=== PATIENT | male | born 1940 | race African-American/Black ===

== ENCOUNTER 2017-02-07 11:26 | Emergency (ER) | payer MEDICARE ==
[~2017-02-07] VITALS: Ht 177.8 cm; Wt 63.5 kg
[~2017-02-07 11:26] MED LIST: ACET-704 PO; ASPI81TA9 PO; CYCL10TA2 PO; LIDO700A4 TP; LOSA25TA4 PO; LOSA50TA2 PO; METH4TAB2 PO; PANT40TA5 PO
[2017-02-07 11:45] VITALS: BP 155/87
--- NOTE | 2017-02-07 13:55 | RAD ---
Left shoulder, 3 views, 02/07/2017: History: Fall, pain No fracture or dislocation is identified. There is mild degenerative change. IMPRESSION: No acute bony abnormality is detected.
--- NOTE | 2017-02-07 13:57 | RAD ---
Left foot, 3 views, 02/07/2017: History: Fall, foot pain The bony structures are demineralized. There are mild scattered degenerative changes. No acute fracture or dislocation is identified. Arterial calcifications are present. IMPRESSION: No acute bony abnormality is detected.
--- NOTE | 2017-02-07 14:12 | PHYS DOC ---
Past Medical History Past Medical History: Hypertension Past Surgical History: No Surgical History Alcohol Use: None Drug Use: None Adult General Chief Complaint Chief Complaint: SHOULDER INJURY HPI HPI Patient is a 76 year old male who fell in his garden yesterday and injured his left foot and left shoulder. He was wearing a baseball And thinks he bumped his head on the side of his house but does not think he had any significant head injury, no abrasion to his head, no loss of consciousness. He has been ambulatory since this happened but he has noted some shoulder soreness with decreased range of motion of his shoulder and also his left foot is sore. 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 Review of Systems Review of Systems Constitutional: Denies fever or chills [] HENT: Denies nasal congestion or sore throat [] Respiratory: Denies cough or shortness of breath [] : Denies dysuria or hematuria [] Musculoskeletal: As in history of present illness Integument: Denies rash or skin lesions [] Neurologic: Denies headache, focal weakness or sensory changes [] Allergies Allergies Allergies Coded Allergies Type Severity Reaction Last Updated Verified No Known Drug Allergies 08/21/15 No Physical Exam Physical Exam Constitutional: Well developed, well nourished, no acute distress, non-toxic appearance. [] HENT: Normocephalic, atraumatic, bilateral external ears normal, nose normal. [ ] Eyes: conjunctiva normal, no discharge. [] Neck: Normal range of motion, no stridor. [] Skin: Warm, dry, no erythema, no rash. [] Extremities: Left shoulder no bony tenderness, no joint space tenderness. Some pain with abduction of the shoulder although he is mostly able to do full range of motion. Not much discomfort with rotation of the shoulder. Left foot has tenderness of the great toe, no swelling, no deformity. Neurologic: Alert and oriented X 3, normal motor function, normal sensory function, no focal deficits noted. [] Current Patient Data Vital Signs Vital Signs Date Time Temp Pulse Resp B/P Pulse Ox O2 Delivery O2 Flow Rate FiO2 02/07/17 11:45 98.1 96 20 155/87 100 Room Air 98.1 EKG EKG [] Radiology/Procedures Radiology/Procedures X-rays of the left shoulder and the left foot were obtained and read by me, no acute fracture, no dislocation. [] Course & Med Decision Making Course & Med Decision Making Pertinent Labs and Imaging studies reviewed. (See chart for details) 76-year-old male fell yesterday and complains of left shoulder pain and left foot pain. X-rays are negative for fracture. He may have a rotator cuff injury, I discussed this with him, and urged him to follow up within the next 5-7 days with orthopedics if his shoulder does not seem to be getting back to normal, encouraged him to not delay with a follow-up if his shoulder continues to bother him. Ice and ibuprofen for both. Note to be off work until Sunday. [] Dragon Disclaimer Dragon Disclaimer This electronic medical record was generated, in whole or in part, using a voice recognition dictation system. Departure Departure Impression: Primary Impression: Contusion of left shoulder Additional Impression: Contusion of left foot Disposition: HOME, SELF-CARE Condition: STABLE Referrals: RACHAEL COFFEY MD (PCP) JUAN DAVID TAVERA MD Patient Instructions: Shoulder Pain, [id number] Additional Instructions: As we discussed, your x-rays are normal. Your shoulder might just be bruised, but if it is not feeling much better in the next 3-5 days, you need to see an orthopedic doctor for recheck of your shoulder. I gave you a referral, or you may call your doctor for a referral, to orthopedics. Ice 15-20 minutes out of every 1-2 hours on your shoulder and your foot. Purchase ibuprofen 200 mg (same as Motrin or Advil) [id number] and take one or 2 every 6 hours as needed for pain. Problem Qualifiers HAN MEHTA MD Feb 07, 2017 14:12
== END 2017-02-07 14:36 | disposition home or self-care (01) ==
LOC: ER 11:26
DX: S90.32XA Contusion of left foot, initial encounter (principal); S40.012A Contusion of left shoulder, initial encounter; I10 Essential (primary) hypertension; X58.XXXA Exposure to other specified factors, initial encounter; Y93.64 Activity, baseball; Y99.8 Other external cause status; Y92.89 Other specified places as the place of occurrence of the external cause
CPT/HCPCS: 73030; 73630; 99284

== ENCOUNTER 2017-03-15 00:11 | Emergency (ER) | payer BC ==
[~2017-03-15] VITALS: Ht 177.8 cm; Wt 63.5 kg
[2017-03-15] MEDS ORDERED: IV NORMAL SALINE 1000ML BAG 1,000 ML IV SCH (01:00)
[2017-03-15 01:07] LABS: BASO # 0.1 x10^3/uL (0.0-0.2); BASO % 1 % (0-3); EOS % 1 % (0-3); HEMATOCRIT 43.5 % (39.0-53.0); HEMOGLOBIN 13.9 g/dL (13.0-17.5); LYMPH # 7.3 x10^3/uL (1.0-4.8); LYMPH % 73 % (24-48); MEAN CORPUSCULAR HEMOGLOBIN 27 pg (25-35); MEAN CORPUSCULAR HGB CONC 32 g/dL (31-37); MEAN CORPUSCULAR VOLUME 85 fL (79-100); MONO % 5 % (0-9); NEUT % 20 % (31-73); PLATELET COUNT 168 x10^3/uL (140-400); RED CELL DISTRIBUTION WIDTH 14.2 % (11.5-14.5)
[2017-03-15 01:20] LABS: CALCIUM 9.4 mg/dL (8.5-10.1); CREATININE 0.8 mg/dL (0.7-1.3); GFR 114.3; POTASSIUM 3.7 mmol/L (3.5-5.1)
[2017-03-15 01:27] LABS: ALBUMIN 3.7 g/dL (3.4-5.0); ALBUMIN/GLOBULIN RATIO 0.9 (1.0-1.7); MAGNESIUM 2.2 mg/dL (1.8-2.4); TOTAL BILIRUBIN 0.6 mg/dL (0.2-1.0); TOTAL PROTEIN 7.8 g/dL (6.4-8.2)
[2017-03-15 01:39] LABS: BILIRUBIN,URINE NEGATIVE (NEG); GLUCOSE,URINE NEGATIVE (NEG); NITRITE,URINE NEGATIVE (NEG); PH,URINE 6.5; PROTEIN,URINE NEGATIVE (NEG-TRACE); UROBILINOGEN,URINE 0.2 mg/dL (0.2 mg/dL)
[2017-03-15 01:45] LABS: BACTERIA,URINE 0 /HPF (0-FEW); RBC,URINE 0 /HPF (0-2); SQUAMOUS EPITHELIAL CELL,UR OCC /LPF; WBC,URINE OCC /HPF (0-4)
--- NOTE | 2017-03-15 02:08 | RAD ---
INDICATION: Dizziness COMPARISON: December 2015 TECHNIQUE: Axial CT images obtained through the head. One or more of the following individualized dose reduction techniques were utilized for this examination: 1. Automated exposure control; 2. Adjustment of the mA and/or kV according to patient size; 3. Use of iterative reconstruction technique. FINDINGS: No midline shift. Ventricles and sulci are prominent. Basilar cistern patent. No gross hemorrhage or intracranial mass. No displaced skull fracture. Regions of low attenuation of the white matter. IMPRESSION: No acute intracranial hemorrhage. Regions of low attenuation of the white matter. Nonspecific but frequently secondary to chronic small vessel ischemic disease. Electronically signed by: Aristeo Dumont (March 15, 2017 02:06:12)
[2017-03-15] MEDS ORDERED: hydrALAZINE 20 MG/ML VIAL. IVP ONE (02:15)
[2017-03-15] MEDS ORDERED: AMLO5TAB2 PO (02:20)
--- NOTE | 2017-03-15 02:20 | PHYS DOC ---
Past Medical History Past Medical History: Hypertension Past Surgical History: No Surgical History Alcohol Use: None Drug Use: None Adult General Chief Complaint Chief Complaint: DIZZY/LIGHT HEADED HPI HPI Patient is a 76 year old male who presents with complaint of intermittent lightheadedness. Patient states that he has had similar symptoms for several weeks, however he started having more frequent symptoms over the past 2 days. Patient states that his symptoms worsen when he tries to lay down at nighttime. Patient states that they improve when he sits up. Patient states that while upright he does not get dizzy or lightheaded. Patient states that he drove himself here to the emergency department for evaluation. Patient states he follows a Dr. Otero but states that he does not take any medications and is not treated for any medical conditions at this time. Patient denies any pain, vision loss, unilateral weakness, or headache at this time. Patient states that his symptoms have been making it difficult for him to sleep which is why he came to the emergency department. Review of Systems Review of Systems Constitutional: Denies fever or chills [] Eyes: Denies change in visual acuity, redness, or eye pain [] HENT: Denies nasal congestion or sore throat [] Respiratory: Denies cough or shortness of breath [] Cardiovascular: Denies chest pain or edema [] GI: Denies abdominal pain, nausea, vomiting, bloody stools or diarrhea [] : Denies dysuria or hematuria [] Musculoskeletal: Denies back pain or joint pain [] Integument: Denies rash or skin lesions [] Neurologic: Dizziness, denies headache, focal weakness or sensory changes [] Current Medications Current Medications Current Medications Medications (Trade) Dose Ordered Sig/Kam Start Time Stop Time Status Last Admin Dose Admin Amlodipine Besylate (Norvasc) 5 mg 1X ONCE 03/15/17 02:45 03/15/17 02:46 03/15/17 02:36 5 MG Hydralazine HCl (Apresoline) 10 mg 1X ONCE 03/15/17 02:15 03/15/17 02:34 DC Sodium Chloride 1,000 ml @ 1,000 mls/hr Q1H 03/15/17 01:00 03/15/17 01:59 DC 03/15/17 01:07 1,000 MLS/HR Allergies Allergies Allergies Coded Allergies Type Severity Reaction Last Updated Verified No Known Drug Allergies 08/21/15 No Physical Exam Physical Exam Constitutional: Well developed, well nourished, no acute distress, non-toxic appearance. [] HENT: Normocephalic, atraumatic, bilateral external ears normal, oropharynx moist, no oral exudates, nose normal. [] Eyes: PERRLA, EOMI, conjunctiva normal, no discharge. [] Neck: Normal range of motion, no tenderness, supple, no stridor. [] Cardiovascular:Heart rate regular rhythm, no murmur [] Lungs & Thorax: Bilateral breath sounds clear to auscultation [] Abdomen: Bowel sounds normal, soft, no tenderness, no masses, no pulsatile masses. [] Skin: Warm, dry, no erythema, no rash. [] Back: No tenderness, no CVA tenderness. [] Extremities: No tenderness, no cyanosis, no clubbing, ROM intact, no edema. [] Neurologic: Alert and oriented X 3, normal motor function, normal sensory function, no focal deficits noted. [] Psychologic: Affect normal, judgement normal, mood normal. [] Current Patient Data Vital Signs Vital Signs Date Time Temp Pulse Resp B/P (MAP) Pulse Ox O2 Delivery O2 Flow Rate FiO2 03/15/17 02:36 74 167/86 03/15/17 00:27 97.7 16 99 Room Air 97.7 Lab Values Laboratory Tests Test 03/15/17 00:30 03/15/17 01:30 White Blood Count 10.0 x10^3/uL (4.0-11.0) Red Blood Count 5.10 x10^6/uL (4.30-5.70) Hemoglobin 13.9 g/dL (13.0-17.5) Hematocrit 43.5 % (39.0-53.0) Mean Corpuscular Volume 85 fL (79-100) Mean Corpuscular Hemoglobin 27 pg (25-35) Mean Corpuscular Hemoglobin Concent 32 g/dL (31-37) Red Cell Distribution Width 14.2 % (11.5-14.5) Platelet Count 168 x10^3/uL (140-400) Neutrophils (%) (Auto) 20 % (31-73) L Lymphocytes (%) (Auto) 73 % (24-48) H Monocytes (%) (Auto) 5 % (0-9) Eosinophils (%) (Auto) 1 % (0-3) Basophils (%) (Auto) 1 % (0-3) Neutrophils # (Auto) 2.0 x10^3uL (1.8-7.7) Lymphocytes # (Auto) 7.3 x10^3/uL (1.0-4.8) H Monocytes # (Auto) 0.5 x10^3/uL (0.0-1.1) Eosinophils # (Auto) 0.1 x10^3/uL (0.0-0.7) Basophils # (Auto) 0.1 x10^3/uL (0.0-0.2) Platelet Estimate Pending Sodium Level 140 mmol/L (136-145) Potassium Level 3.7 mmol/L (3.5-5.1) Chloride Level 104 mmol/L (98-107) Carbon Dioxide Level 26 mmol/L (21-32) Anion Gap 10 (6-14) Blood Urea Nitrogen 10 mg/dL (8-26) Creatinine 0.8 mg/dL (0.7-1.3) Estimated GFR (Cockcroft-Gault) 114.3 BUN/Creatinine Ratio 13 (6-20) Glucose Level 97 mg/dL (70-99) Calcium Level 9.4 mg/dL (8.5-10.1) Magnesium Level 2.2 mg/dL (1.8-2.4) Total Bilirubin 0.6 mg/dL (0.2-1.0) Aspartate Amino Transferase (AST) 19 U/L (15-37) Alanine Aminotransferase (ALT) 18 U/L (16-63) Alkaline Phosphatase 68 U/L (46-116) Total Protein 7.8 g/dL (6.4-8.2) Albumin 3.7 g/dL (3.4-5.0) Albumin/Globulin Ratio 0.9 (1.0-1.7) L Urine Collection Type Unknown Urine Color Yellow Urine Clarity Cloudy Urine pH 6.5 Urine Specific [place] 1.010 Urine Protein Negative mg/dL (NEG-TRACE) Urine Glucose (UA) Negative mg/dL (NEG) Urine Ketones (Stick) Negative mg/dL (NEG) Urine Blood Negative (NEG) Urine Nitrite Negative (NEG) Urine Bilirubin Negative (NEG) Urine Urobilinogen Dipstick 0.2 mg/dL (0.2 mg/dL) Urine Leukocyte Esterase Negative (NEG) Urine RBC 0 /HPF (0-2) Urine WBC Occ /HPF (0-4) Urine Squamous Epithelial Cells Occ /LPF Urine Bacteria 0 /HPF (0-FEW) Urine Mucus Slight /LPF Laboratory Tests 03/15/17 00:30 Laboratory Tests 03/15/17 00:30 EKG EKG Interpreted by me: Heart rate 75, sinus rhythm, normal intervals, normal axis, no acute ST/T-wave abnormalities present [] Radiology/Procedures Radiology/Procedures [facility] [address] [place] [address] IMAGING REPORT Signed PATIENT: RAJAN OREILLY ACCOUNT: [id number] : 1940 LOCATION: ER AGE: 76 SEX: M EXAM STATUS: REG ER ORD. PHYSICIAN: RUFUS FONTAINE MD REASON: dizziness PROCEDURE: CT HEAD WO CONTRAST INDICATION: Dizziness COMPARISON: December 2015 TECHNIQUE: Axial CT images obtained through the head. One or more of the following individualized dose reduction techniques were utilized for this examination: 1. Automated exposure control; 2. Adjustment of the mA and/or kV according to patient size; 3. Use of iterative reconstruction technique. FINDINGS: No midline shift. Ventricles and sulci are prominent. Basilar cistern patent. No gross hemorrhage or intracranial mass. No displaced skull fracture. Regions of low attenuation of the white matter. IMPRESSION: No acute intracranial hemorrhage. Regions of low attenuation of the white matter. Nonspecific but frequently secondary to chronic small vessel ischemic disease. Electronically signed by: Sherwin Mulligan (March 15, 2017 02:06:12) DICTATED and SIGNED BY: SHERWIN MULLIGAN MD DATE: 03/15/17 0206 CC: JADE OTERO; RUFUS FONTAINE MD ~ [] Course & Med Decision Making Course & Med Decision Making Pertinent Labs and Imaging studies reviewed. (See chart for details) Patient noted to have an elevated blood pressure above 185 systolic in the emergency department. Patient's lab work and imaging are otherwise unremarkable. The patient's symptoms are likely due to uncontrolled hypertension. The patient however appears well and is appropriate for outpatient treatment. The patient was started on amlodipine 5 mg. Patient will continue on this medication daily with recommended follow-up in 2-3 days with the patient's primary physician. I advised return to the emergency department for any worsening symptoms. Patient voiced understanding and in agreement with treatment plan. Dragon Disclaimer Dragon Disclaimer This electronic medical record was generated, in whole or in part, using a voice recognition dictation system. Departure Departure Impression: Primary Impression: Hypertension Disposition: HOME, SELF-CARE Condition: IMPROVED Referrals: JADE OTERO (PCP) Patient Instructions: Hypertension Additional Instructions: Follow-up with her primary doctor in 2-3 days. Return to the emergency department for any worsening symptoms. Scripts Amlodipine Besylate (AMLODIPINE BESYLATE) 5 Mg Tablet 5 MG PO DAILY, #30 TAB Prov: RUFUS FONTAINE MD 03/15/17 Problem Qualifiers Primary Impression: Hypertension Hypertension type: essential hypertension Qualified Codes: I10 - Essential ( primary) hypertension RUFUS FONTAINE MD March 15, 2017 02:20
[2017-03-15] MEDS ORDERED: amLODIPine BESYLATE 5 MG TABLET ONE (02:31)
[2017-03-15 02:36] VITALS: BP 167/86
[2017-03-15] MEDS ORDERED: amLODIPine BESYLATE 5 MG TABLET PO ONE (02:45)
[2017-03-15 03:59] LABS: % EOS 4 % (0-5)
[2017-03-15 04:00] LABS: PLT ESTIMATE ADEQUATE (ADEQUATE)
--- NOTE | 2017-03-15 06:13 | EKG ---
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
== END 2017-03-15 02:49 | disposition home or self-care (01) ==
LOC: ER 00:11
DX: I10 Essential (primary) hypertension (principal)
CPT/HCPCS: 36415; 70450; 80053; 81001; 83735; 85007; 85027; 93005; 96360; 99285; J7030

== ENCOUNTER 2017-03-17 07:41 | Emergency (ER) | payer BC ==
[~2017-03-17 07:41] MED LIST changes: +AMLO5TAB2 PO
[2017-03-17] MEDS ORDERED: IV NORMAL SALINE 1000ML BAG 1,000 ML IV ONE (08:15)
--- NOTE | 2017-03-17 08:27 | PHYS DOC ---
Past Medical History Past Medical History: Hypertension Past Surgical History: No Surgical History Alcohol Use: None Drug Use: None Adult General Chief Complaint Chief Complaint: DIZZY/LIGHT HEADED [facility] HPI Patient is a 76 year old male presenting to the emergency department for evaluation of dizziness that has been an ongoing issue. Patient was seen 2 days ago for the same and thought that it was more orthostasis was discharged and saw his primary care provider Dr. Otero and was started on Norvasc for his hypertension. He says that he took his first dose yesterday. 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 He says that he just felt weak all over. Patient is very difficult to get history from as he does not answer questions directly and he talks about other things. I asked him to describe the dizziness if it is room spinning or lightheaded or altered gait and he started talking about ringing in his ears and has been going on for 3 years. Patient is in no obvious distress with normal vital signs with mild hypertension noted. Review of Systems Review of Systems Constitutional: Denies fever or chills [] Eyes: Denies change in visual acuity, redness, or eye pain [] HENT: Denies nasal congestion or sore throat [] Respiratory: Denies cough or shortness of breath [] Cardiovascular: No additional information not addressed in HPI [] GI: Denies abdominal pain, nausea, vomiting, bloody stools or diarrhea [] : Denies dysuria or hematuria [] Musculoskeletal: Denies back pain or joint pain [] Integument: Denies rash or skin lesions [] Neurologic: Denies headache, focal weakness. + dizziness sensory changes [] Current Medications Current Medications Current Medications Medications (Trade) Dose Ordered Sig/Kam Start Time Stop Time Status Last Admin Dose Admin Sodium Chloride 1,000 ml @ 1,000 mls/hr 1X ONCE 03/17/17 08:15 03/17/17 09:14 DC 03/17/17 08:42 1,000 MLS/HR Allergies Allergies Allergies Coded Allergies Type Severity Reaction Last Updated Verified No Known Drug Allergies 08/21/15 No Physical Exam Physical Exam Constitutional: Well developed, well nourished, no acute distress, non-toxic appearance. [] HENT: Normocephalic, atraumatic, bilateral external ears normal, oropharynx moist, no oral exudates, nose normal. [] Eyes: PERRLA, EOMI, conjunctiva normal, no discharge. [] Neck: Normal range of motion, no tenderness, supple, no stridor. [] Cardiovascular:Heart rate regular rhythm, no murmur [] Lungs & Thorax: Bilateral breath sounds clear to auscultation [] Abdomen: Bowel sounds normal, soft, no tenderness, no masses, no pulsatile masses. [] Skin: Warm, dry, no erythema, no rash. [] Back: No tenderness, no CVA tenderness. [] Extremities: No tenderness, no cyanosis, no clubbing, ROM intact, no edema. [] Neurologic: Alert and oriented X 3, normal motor function, normal sensory function, no focal deficits noted. [] Current Patient Data Vital Signs Vital Signs Date Time Temp Pulse Resp B/P (MAP) Pulse Ox O2 Delivery O2 Flow Rate FiO2 03/17/17 08:30 80 16 152/89 (110) 98 Room Air 03/17/17 07:57 98.0 98.0 Lab Values Laboratory Tests Test 03/17/17 08:38 White Blood Count 6.3 x10^3/uL (4.0-11.0) Red Blood Count 5.29 x10^6/uL (4.30-5.70) Hemoglobin 14.4 g/dL (13.0-17.5) Hematocrit 44.0 % (39.0-53.0) Mean Corpuscular Volume 83 fL (79-100) Mean Corpuscular Hemoglobin 27 pg (25-35) Mean Corpuscular Hemoglobin Concent 33 g/dL (31-37) Red Cell Distribution Width 13.8 % (11.5-14.5) Platelet Count 166 x10^3/uL (140-400) Neutrophils (%) (Auto) 27 % (31-73) L Lymphocytes (%) (Auto) 62 % (24-48) H Monocytes (%) (Auto) 9 % (0-9) Eosinophils (%) (Auto) 1 % (0-3) Basophils (%) (Auto) 1 % (0-3) Neutrophils # (Auto) 1.7 x10^3uL (1.8-7.7) L Lymphocytes # (Auto) 3.9 x10^3/uL (1.0-4.8) Monocytes # (Auto) 0.6 x10^3/uL (0.0-1.1) Eosinophils # (Auto) 0.0 x10^3/uL (0.0-0.7) Basophils # (Auto) 0.0 x10^3/uL (0.0-0.2) Sodium Level 141 mmol/L (136-145) Potassium Level 3.7 mmol/L (3.5-5.1) Chloride Level 105 mmol/L (98-107) Carbon Dioxide Level 28 mmol/L (21-32) Anion Gap 8 (6-14) Blood Urea Nitrogen 12 mg/dL (8-26) Creatinine 0.8 mg/dL (0.7-1.3) Estimated GFR (Cockcroft-Gault) 114.3 BUN/Creatinine Ratio 15 (6-20) Glucose Level 99 mg/dL (70-99) Calcium Level 9.0 mg/dL (8.5-10.1) Magnesium Level 2.1 mg/dL (1.8-2.4) Total Bilirubin 0.9 mg/dL (0.2-1.0) Aspartate Amino Transferase (AST) 18 U/L (15-37) Alanine Aminotransferase (ALT) 14 U/L (16-63) L Alkaline Phosphatase 76 U/L (46-116) Creatine Kinase 140 U/L (39-308) Troponin I Quantitative 0.034 ng/mL (0.000-0.055) AV-Taw-S-Type Natriuretic Peptide 43 pg/mL (0-124) Total Protein 7.7 g/dL (6.4-8.2) Albumin 3.6 g/dL (3.4-5.0) Albumin/Globulin Ratio 0.9 (1.0-1.7) L Salicylates Level < 0.2 mg/dL (2.8-20.0) L Salicylate Last Dose Date Unknown Salicylate Last Dose Time Unknown Acetaminophen Level < 2.0 mcg/ml (10-30) L Acetaminophen Last Dose Date Unknown Acetaminophen Last Dose Time Unknown Ethyl Alcohol Level < 10 mg/dL (0-10) Laboratory Tests 03/17/17 08:38 Laboratory Tests 03/17/17 08:38 EKG EKG Sinus rhythm at 80 bpm with normal axis and J-point elevation in V3 and V4 slightly more prominent than prior done on 01/06/2016. Normal T waves. Radiology/Procedures Radiology/Procedures [] Course & Med Decision Making Course & Med Decision Making Patient had fairly upper hands of workup several days ago. We'll repeat the labs and EKG treat him with IV fluids and then reassess. Patient feels back to baseline after IV fluids and observation here. His labs and EKG do not show any acute changes. It is difficult to get a grasp on what is exactly causing the patient's symptoms. An anginal equivalent or other cardiac etiology is considered given he had diaphoresis and dizziness on exertion. I recommended admission for further observation given this is second visit for the same thing however patient refused stating that he feels much better and wants to go home. Patient verbalized understanding the limitations of the testing that I can do in the emergency department and that cardiac disease is still a possibility. 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 Patient aware and agreeable with plan for discharge and verbalized understanding of the need for short-term follow-up and strict ER return precautions discussed worsening pain fevers vomiting or general concerns. Dragon Disclaimer Dragon Disclaimer This electronic medical record was generated, in whole or in part, using a voice recognition dictation system. Departure Departure Impression: Primary Impression: Dizziness Disposition: 01 HOME, SELF-CARE Condition: GOOD Referrals: JADE OTERO (PCP) KEARA HERNANDEZ MD Patient Instructions: Dizziness Additional Instructions: DO NOT EXERT YOURSELF UNTIL CLEARED BY YOUR PCP. FOLLOW WITH YOUR PCP OR A INSURANCE SALES ASSOCIATE IN THE NEXT 72 HOURS. TAKE A FULL ASPIRIN DAILY. COME BACK TO THE ED WITH ANY NEW OR WORSENING PAIN, SOA, OR OTHER GENERAL CONCERNS. THANK YOU. ADAM ESTES DO March 17, 2017 08:27
[2017-03-17 08:46] LABS: BASO % 1 % (0-3); EOS % 1 % (0-3); HEMOGLOBIN 14.4 g/dL (13.0-17.5); LYMPH # 3.9 x10^3/uL (1.0-4.8); LYMPH % 62 % (24-48); MEAN CORPUSCULAR HEMOGLOBIN 27 pg (25-35); MEAN CORPUSCULAR HGB CONC 33 g/dL (31-37); MEAN CORPUSCULAR VOLUME 83 fL (79-100); MONO % 9 % (0-9); NEUT % 27 % (31-73); PLATELET COUNT 166 x10^3/uL (140-400); RED BLOOD COUNT 5.29 x10^6/uL (4.30-5.70); RED CELL DISTRIBUTION WIDTH 13.8 % (11.5-14.5); WHITE BLOOD COUNT 6.3 x10^3/uL (4.0-11.0)
[2017-03-17 08:59] LABS: CREATININE 0.8 mg/dL (0.7-1.3); GFR 114.3; POTASSIUM 3.7 mmol/L (3.5-5.1)
[2017-03-17 09:01] LABS: ETHANOL < 10 mg/dL (0-10)
[2017-03-17 09:11] LABS: ALBUMIN 3.6 g/dL (3.4-5.0); TOTAL PROTEIN 7.7 g/dL (6.4-8.2)
[2017-03-17 09:12] LABS: ALBUMIN/GLOBULIN RATIO 0.9 (1.0-1.7); MAGNESIUM 2.1 mg/dL (1.8-2.4); TOTAL BILIRUBIN 0.9 mg/dL (0.2-1.0)
[2017-03-17 09:48] VITALS: BP 166/81
--- NOTE | 2017-03-17 09:58 | EKG ---
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
[2017-03-17 10:24] LABS: BILIRUBIN,URINE NEGATIVE (NEG); GLUCOSE,URINE NEGATIVE (NEG); NITRITE,URINE NEGATIVE (NEG); PH,URINE 6.5; PROTEIN,URINE NEGATIVE (NEG-TRACE); UROBILINOGEN,URINE 0.2 mg/dL (0.2 mg/dL)
[2017-03-17 10:33] LABS: BARBITURATES NEG (NEG); BENZODIAZEPINES NEG (NEG); CANNABINOIDS NEG (NEG); COCAINE NEG (NEG); METHADONE NEG (NEG); OPIATES NEG (NEG); PHENCYCLIDINE NEG (NEG)
[2017-03-17 10:40] LABS: BACTERIA,URINE 0 /HPF (0-FEW); RBC,URINE 0 /HPF (0-2); WBC,URINE OCC /HPF (0-4)
== END 2017-03-17 10:12 | disposition home or self-care (01) ==
LOC: ER 09:00
DX: R42 Dizziness and giddiness (principal); I10 Essential (primary) hypertension
CPT/HCPCS: 36415; 80053; 80305; 80320; 81001; 82550; 83735; 83880; 84484; 85027; 93005; 96360; 99285; G6038; J7030; G0480; G0481; 80196

== ENCOUNTER 2019-07-26 14:09 | Emergency (ER) | payer BC, MEDICARE, OTHER ==
[~2019-07-26] VITALS: Ht 180.3 cm; Wt 68.0 kg
[~2019-07-26 14:09] MED LIST changes: +AMLO5TAB10 PO; -AMLO5TAB2 PO; +ASPI-612 PO; -ASPI81TA9 PO; +LOSA-73 PO; -LOSA25TA4 PO; +LOSA25TA54 PO; -LOSA50TA2 PO; -PANT40TA5 PO; +PANT40TA77 PO
[2019-07-26 15:00] VITALS: BP 179/87
[2019-07-26] MEDS ORDERED: PENI500T PO (15:43)
[2019-07-26] MEDS ORDERED: ONDA4TAB12 PO (15:43)
--- NOTE | 2019-07-26 15:43 | PHYS DOC ---
Past Medical History Past Medical History: Hypertension Past Surgical History: No Surgical History Alcohol Use: None Drug Use: None Adult General Chief Complaint Chief Complaint: DENTAL PROBLEM HPI HPI Patient is a 78 year old male who presents with going to the dentist on Sunday and they say that he had an infection in his gumline after getting x-rays done. Patient states it is the left upper gumline. Patient denies any pain but states he's not feeling well states he is out of that her taste in his mouth and he thinks he is feeling sick. Patient states it did not give him a antibiotic at the dizziness. Patient states he had a doctor's appointment on Sunday with his primary care doctor and they did not give him a prescription for an antibiotic either. Review of Systems Review of Systems Constitutional: Denies fever or chills [] HENT: Denies nasal congestion or sore throat. Dental caries, infection to gumline. [] Respiratory: Denies cough or shortness of breath [] Cardiovascular: No additional information not addressed in HPI [] GI: Sour taste in mouth due causing low appetite. Denies abdominal pain, nausea, vomiting, bloody stools or diarrhea [] All other systems were reviewed and found to be within normal limits, except as documented in this note. Allergies Allergies Allergies Coded Allergies Type Severity Reaction Last Updated Verified No Known Drug Allergies 08/21/15 No Physical Exam Physical Exam Constitutional: Well developed, well nourished, no acute distress, non-toxic appearance. [] HENT: Normocephalic, atraumatic, bilateral external ears normal, oropharynx moist, no oral exudates, nose normal. [] Eyes: PERRLA, EOMI, conjunctiva normal, no discharge. [] Neck: Normal range of motion, no tenderness, supple, no stridor. [] Cardiovascular:Heart rate regular rhythm, no murmur [] Lungs & Thorax: Bilateral breath sounds clear to auscultation [] Abdomen: Bowel sounds normal, soft, no tenderness, no masses, no pulsatile masses. [] Skin: Warm, dry, no erythema, no rash. [] Back: No tenderness, no CVA tenderness. [] Extremities: No tenderness, no cyanosis, no clubbing, ROM intact, no edema. [] Neurologic: Alert and oriented X 3, normal motor function, normal sensory function, no focal deficits noted. [] Psychologic: Affect normal, judgement normal, mood normal. [] EKG EKG [] Radiology/Procedures Radiology/Procedures [] Course & Med Decision Making Course & Med Decision Making Patient is a 78 year old male who presents with going to the dentist on Sunday and they say that he had an infection in his gumline after getting x-rays done. Patient states it is the left upper gumline. Patient denies any pain but states he's not feeling well states he is out of that her taste in his mouth and he thinks he is feeling sick. Patient states it did not give him a antibiotic at the dizziness. Patient states he had a doctor's appointment on Sunday with his primary care doctor and they did not give him a prescription for an antibiotic either. Afebrile. Alert and oriented. Skin pink warm and dry. Patient is eating and drinking appropriately. Patient states he has a lack of appetite due to the taste in his mouth. Patient's left upper gumline is reddened and swollen but there is no tenderness or drainage from it. Patient states that his dentist told him that he needed an antibiotic and that his primary care would have given him one. Patient to follow-up with his dentist on Sunday next week. No facial swelling. Patient is denying any pain at this time. Dragon Disclaimer Dragon Disclaimer This electronic medical record was generated, in whole or in part, using a voice recognition dictation system. Departure Departure Impression: Primary Impression: Dental infection Disposition: HOME, SELF-CARE Condition: STABLE Referrals: JADE OTERO (PCP) Patient Instructions: Dental Abscess, Dental Caries Additional Instructions: Follow up with dentist as soon as possible. Take medication with food. Scripts Ondansetron (ONDANSETRON ODT) 4 Mg Tab.rapdis 1 TAB PO PRN Q6-8HRS, #10 TAB Prov: EDIS WANG SEAL EXTRUSION OPERATOR 07/26/19 Penicillin V Potassium (PENICILLIN V POTASSIUM) 500 Mg Tablet 1 TAB PO QID, #40 TAB Prov: EDIS WANG SEAL EXTRUSION OPERATOR 07/26/19 EDIS WNAG SEAL EXTRUSION OPERATOR Jul 26, 2019 15:43
== END 2019-07-26 15:55 | disposition home or self-care (01) ==
LOC: ER 14:09
DX: K04.7 Periapical abscess without sinus (principal); I10 Essential (primary) hypertension
CPT/HCPCS: 99283

== ENCOUNTER → 2019-08-20 | Outpatient (CLI) | payer MEDICARE ==
[2019-07-26 15:00] VITALS: BP 179/87
[~2019-08-20] MED LIST changes: +ONDA4TAB12 PO; +PENI500T PO
--- NOTE | 2019-08-20 13:35 | RAD ---
EXAM: Scrotal sonogram. HISTORY: Enlarged right testicle. TECHNIQUE: Garcia scale and color Doppler sonographic imaging of the scrotum was performed. COMPARISON: None. FINDINGS: The testes are normal in size and demonstrate normal symmetric blood flow. No focal testicular parenchymal lesion is seen. There are moderate the large right greater than left hydroceles. No varicocele seen. The epididymides are unremarkable. IMPRESSION: 1. Moderate to large right greater than left hydroceles. 2. Unremarkable testes. Electronically signed by: Nae Rivera MD (08/20/2019 1:32 PM) [place] [id number]
[2019-08-20 13:50] LABS: CREATININE 1.1 mg/dL (0.7-1.3); GFR 78.7
--- NOTE | 2019-08-20 14:54 | RAD ---
BRAIN W/O CONTRAST Date: 08/20/2019 1:00 PM Indication: Chronic dizziness Comparison: 01/07/2016. Technique: Multiplanar multisequence MRI of the brain was performed without intravenous contrast using the standard protocol. Examination was terminated prematurely at patient's request due to extreme dizziness. Axial T1, T2, FLAIR, DWI, and sagittal T1 imaging was obtained. Findings: No acute infarct. The ventricles are normal in size and configuration without hydrocephalus. Mild scattered FLAIR hyperintensities in the subcortical and periventricular deep white matter, a nonspecific finding, most commonly seen with chronic small vessel ischemic disease. The scalp and calvarium are normal. The pituitary and sella are normal. No Chiari malformation. Mild incompletely characterized degenerative spondylosis of the visualized upper cervical spine. The visualized orbits and globes are normal. Bilateral maxillary sinus mucous retention cyst. The mastoid air cells are clear. Abnormal left vertebral artery flow-void. IMPRESSION: 1. Incomplete examination at patient's request due to extreme dizziness. 2. No acute infarct. No hydrocephalus. No large space occupying mass. 3. Abnormal left vertebral artery flow void, likely due to slow flow or occlusion. This could be further characterized with CTA or MRA of the head and neck. 4. Mild chronic small vessel ischemic disease. Electronically signed by: Sid Rodriguez MD (08/20/2019 2:51 PM) [id number]
== END | disposition home or self-care (01) ==
LOC: MRI 13:26
PROVIDERS: ATTEND Family Medicine
DX: I67.82 Cerebral ischemia (principal); N43.3 Hydrocele, unspecified; J34.1 Cyst and mucocele of nose and nasal sinus; M47.812 Spondylosis without myelopathy or radiculopathy, cervical region
CPT/HCPCS: 36415; 70551; 76870; 82565; 84520

== ENCOUNTER 2020-05-16 13:47 | Emergency (ER) | payer MEDICARE ==
[~2020-05-16] VITALS: Ht 177.8 cm; Wt 70.4 kg
[2020-05-16 13:47] VITALS: BP 217/104
[2020-05-16] MEDS ORDERED: PENI500T PO (14:22)
--- NOTE | 2020-05-16 14:22 | PHYS DOC ---
Past Medical History Past Medical History: Hypertension Past Surgical History: No Surgical History Smoking Status: Never Smoker Alcohol Use: None Drug Use: None General Adult EDM: Chief Complaint: DENTAL PROBLEM HPI: HPI: Patient is a 79 year old male who presents with many dental caries. He states he had been having pain in the left upper teeth and went to the dentist on sunday. He staes they took x rays and told him he had a abscessed tooth but did not give him antibiotics. He states he has a bitter taste in his mouth and this has happened before in the past too when he had a dental infection. He states that the dentist told him if he wasn't feeling well that he should come to the ED to get antibiotics. Patient states the pain only occurs with chewing and he is just here for antibiotics. He denies fevers, dizziness, nausea, vomiting, abdominal pain, chest pain, soa, cough. Denies any pain at this time. Patient states he takes no medications daily and his only past medical history is dental caries and hypertension. Review of Systems: Review of Systems: Constitutional: Denies fever or chills. [] Eyes: Denies change in visual acuity. [] HENT: Denies nasal congestion or sore throat. Dental caries, abscessed left upper tooth with gumline swelling and redness. No discharge. Bitter taste in his mouth. [] Respiratory: Denies cough or shortness of breath. [] Cardiovascular: Denies chest pain or edema. [] GI: Denies abdominal pain, nausea, vomiting, bloody stools or diarrhea. [] : Denies dysuria. [] Musculoskeletal: Denies back pain or joint pain. [] Integument: Denies rash. [] Neurologic: Denies headache, focal weakness or sensory changes. [] Endocrine: Denies polyuria or polydipsia. [] Lymphatic: Denies swollen glands. [] Psychiatric: Denies depression or anxiety. [] Heart Score: Risk Factors: Risk Factors: DM, Current or recent (<one month) smoker, HTN, HLP, family history of CAD, obesity. Risk Scores: Score 0 - 3: 2.5% MACE over next 6 weeks - Discharge Home Score 4 - 6: 20.3% MACE over next 6 weeks - Admit for Clinical Observation Score 7 - 10: 72.7% MACE over next 6 weeks - Early Invasive Strategies Allergies: Allergies: Allergies Coded Allergies Type Severity Reaction Last Updated Verified No Known Drug Allergies 08/21/15 No Physical Exam: PE: Constitutional: Well developed, well nourished, no acute distress, non-toxic appearance. [] HENT: Normocephalic, atraumatic, bilateral external ears normal, oropharynx moist, no oral exudates, nose normal. Dental caries and left upper gumline swelling. No discharge or tenderness. [] Eyes: PERRLA, EOMI, conjunctiva normal, no discharge. [] Neck: Normal range of motion, no tenderness, supple, no stridor. [] Cardiovascular:Heart rate regular rhythm, no murmur [] Lungs & Thorax: Bilateral breath sounds clear to auscultation [] Abdomen: Bowel sounds normal, soft, no tenderness, no masses, no pulsatile masses. [] Skin: Warm, dry, no erythema, no rash. [] Back: No tenderness, no CVA tenderness. [] Extremities: No tenderness, no cyanosis, no clubbing, ROM intact, no edema. [] Neurologic: Alert and oriented X 3, normal motor function, normal sensory function, no focal deficits noted. [] Psychologic: Affect normal, judgement normal, mood normal. [] Current Patient Data: Vital Signs: Vital Signs Date Time Temp Pulse Resp B/P (MAP) Pulse Ox O2 Delivery O2 Flow Rate FiO2 05/16/20 13:47 98.9 102 16 217/104 (141) 98 Room Air 98.9 EKG: EKG: [] Radiology/Procedures: Radiology/Procedures: [] Course & Med Decision Making: Course & Med Decision Making Pertinent Labs and Imaging studies reviewed. (See chart for details) See HPI. Patient has many dental caries and missing teeth in his mouth. He has some gumline swelling to the left upper gums. I will place the patient on some penicillin and he can follow-up with his dentist as scheduled. [] Lisa Disclaimer: Lisa Disclaimer: This electronic medical record was generated, in whole or in part, using a voice recognition dictation system. Departure Departure Impression: Primary Impression: Dental infection Disposition: 01 HOME, SELF-CARE Condition: STABLE Referrals: JADE OTERO (PCP) Patient Instructions: Dental Abscess, Dental Caries Additional Instructions: Follow-up with your dentist as soon as possible. Take medication with food and as prescribed. Ibuprofen or Tylenol for your pain. Scripts Penicillin V Potassium (PENICILLIN V POTASSIUM) 500 Mg Tablet 1 TAB PO QID, #40 TAB Prov: EDIS WANG APRN 05/16/20 Justicifation of Admission Dx: Justifications for Admission: Justification of Admission Dx: N/A EDIS WANG APRN May 16, 2020 14:22
== END 2020-05-16 14:50 | disposition home or self-care (01) ==
LOC: ER 13:47
DX: K04.7 Periapical abscess without sinus (principal); I10 Essential (primary) hypertension
CPT/HCPCS: 99283

== ENCOUNTER → 2020-09-28 | Outpatient (CLI) | payer MEDICARE ==
[~2020-09-28] MED LIST changes: +AMLO-186 PO; -AMLO5TAB10 PO; -ASPI-612 PO; +ASPI-886 PO
[2020-09-28 14:38] LABS: BASO # 0.1 x10^3/uL (0.0-0.2); BASO % 0 % (0-3); EOS # 0.1 x10^3/uL (0.0-0.7); EOS % 0 % (0-3); HEMOGLOBIN 13.8 g/dL (13.0-17.5); LYMPH # 15.6 x10^3/uL (1.0-4.8); LYMPH % 81 % (24-48); MEAN CORPUSCULAR HEMOGLOBIN 27 pg (25-35); MEAN CORPUSCULAR HGB CONC 31 g/dL (31-37); MEAN CORPUSCULAR VOLUME 85 fL (79-100); MONO # 0.9 x10^3/uL (0.0-1.1); MONO % 5 % (0-9); NEUT # 2.6 x10^3/uL (1.8-7.7); NEUT % 13 % (31-73); PLATELET COUNT 186 x10^3/uL (140-400); RED BLOOD COUNT 5.17 x10^6/uL (4.30-5.70); RED CELL DISTRIBUTION WIDTH 14.7 % (11.5-14.5); WHITE BLOOD COUNT 19.2 x10^3/uL (4.0-11.0)
[2020-09-28 15:31] LABS: % BANDS 2 % (0-9); % LYMPHS 70 % (24-48); % MONOS 1 % (0-10); % SEGS 15 % (35-66)
[2020-09-28 16:28] LABS: PLT ESTIMATE ADEQUATE (ADEQUATE)
[2020-09-28 17:02] LABS: % ATYL 12 % (0-0)
[2020-09-28 23:20] LABS: SMUDGE CELLS PRESENT
== END ==
LOC: ONCLAB 14:23
PROVIDERS: ATTEND Internal Medicine Hematology & Oncology
DX: D72.829 Elevated white blood cell count, unspecified (principal)
CPT/HCPCS: 36415; 85007; 85025

== ENCOUNTER → 2020-10-04 | Outpatient (CLI) | payer MEDICARE | LOC: ONCLAB 10:34 | PROVIDERS: ATTEND Internal Medicine Hematology & Oncology | DX: C91.10 Chronic lymphocytic leukemia of B-cell type not having achieved remission (principal) | CPT/HCPCS: 88184; 88185; 88374 ==

== ENCOUNTER → 2021-02-08 | Outpatient (CLI) | payer MEDICARE ==
[~2021-02-08] MED LIST changes: +IOHEXOL 300 MG/ML 100ML VIAL. ONE
[2021-02-08 13:17] LABS: CREATININE 1.1 mg/dL (0.7-1.3); GFR 78.3
[2021-02-08] MEDS: IOHEXOL 300 MG/ML 100ML VIAL. IV ONE (13:30)
--- NOTE | 2021-02-08 17:34 | RAD ---
CTA HEAD AND NECK W/WO CONTRAST History:Reason: DIZZINESS / Spl. Instructions: IV OMNI 300 75 MLS / History: Technique: After bolus of intravenous contrast, volumetric CT data acquisition was acquired of the he ad and neck. Multiplanar reconstruction images to include MIP and 3-D reconstruction images are submi tted. Exposure: One or more of the following individualized dose reduction techniques were utilized for thi s examination: 1. Automated exposure control 2. Adjustment of the mA and/or kV according to patient size 3. Use of iterative reconstruction technique. Comparison: Head CT March 15, 2017 Any determination of stenosis is based on NASCET criteria. Head CTA: ICA: Severe atheromatous plaque within the carotid siphons. Moderate narrowing of the left supraclino id internal carotid artery. Severe narrowing of the right paraclinoid internal carotid artery (series 9 image 231). MCA: No stenosis, occlusion or aneurysm. AMADA: No stenosis, occlusion or aneurysm. BELL SPINNER: No stenosis, occlusion or aneurysm. No definite origin of the right posterior cerebral art faizan. Basilar artery: No stenosis, occlusion or aneurysm. Distal vertebral arteries: Irregularity left distal vertebral artery with multifocal narrowing. Paten t posterior inferior cerebellar artery. Moderate narrowing of the right distal vertebral artery due t o calcified plaque. Patent superior sagittal, straight, transverse and sigmoid venous sinuses. Bilateral maxillary sinus mucous retention cyst. Mastoid air cells are clear. CT angiogram neck: Aortic arch: Conventional arch anatomy. Common carotid arteries: No stenosis, occlusion or dissection. Internal carotid arteries: Mild atheromatous plaque within the carotid bifurcations. Additional ather omatous plaque within the internal carotid arteries with less than 50 percent narrowing. No occlusion . 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 Small irregular distal left vertebral artery with multifocal narrowing. Left apical fibronodular stranding with nodular appearance measures 0.8 x 0.8 cm. Soft tissues appear normal. Bones: No pathologic osseous lesions. Impression: 1. 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 Irregular left distal vertebral artery with multifocal narrowing. 2. Severe right and moderate left paraclinoid internal carotid artery narrowing due to atheromatous plaque. 3. Moderate right intracranial vertebral artery narrowing due to calcified plaque. 4. Left apical nodular opacity, may relate to pleural and parenchymal scarring. Recommend 6 month fo llow-up CT to ensure stability. Comparison with prior imaging studies would also be of benefit. Electronically signed by: Vidal Saleh DO (02/08/2021 5:31 PM) [id number]
== END ==
LOC: CT 13:00
PROVIDERS: ATTEND Nurse Practitioner Family
DX: I65.23 Occlusion and stenosis of bilateral carotid arteries (principal); I65.03 Occlusion and stenosis of bilateral vertebral arteries; R42 Dizziness and giddiness; J34.1 Cyst and mucocele of nose and nasal sinus
CPT/HCPCS: 36415; 70496; 70498; 82565; 84520; Q9967

== ENCOUNTER → 2021-03-01 | Outpatient (CLI) | payer MEDICARE ==
[~2021-03-01] MED LIST changes: -IOHEXOL 300 MG/ML 100ML VIAL. ONE
[2021-03-01 11:46] LABS: BASO % 0 % (0-3); EOS # 0.1 x10^3/uL (0.0-0.7); EOS % 1 % (0-3); HEMATOCRIT 44.6 % (39.0-53.0); HEMOGLOBIN 14.2 g/dL (13.0-17.5); LYMPH # 18.4 x10^3/uL (1.0-4.8); LYMPH % 87 % (24-48); MEAN CORPUSCULAR HEMOGLOBIN 27 pg (25-35); MEAN CORPUSCULAR HGB CONC 32 g/dL (31-37); MEAN CORPUSCULAR VOLUME 86 fL (79-100); MONO # 0.7 x10^3/uL (0.0-1.1); MONO % 3 % (0-9); NEUT % 9 % (31-73); PLATELET COUNT 190 x10^3/uL (140-400); RED CELL DISTRIBUTION WIDTH 14.7 % (11.5-14.5); WHITE BLOOD COUNT 21.3 x10^3/uL (4.0-11.0)
[2021-03-01 11:56] LABS: CALCIUM 8.9 mg/dL (8.5-10.1); GFR 87.4; POTASSIUM 4.1 mmol/L (3.5-5.1)
[2021-03-01 12:02] LABS: ALBUMIN 4.1 g/dL (3.4-5.0); ALBUMIN/GLOBULIN RATIO 1.2 (1.0-1.7); TOTAL BILIRUBIN 0.6 mg/dL (0.2-1.0); TOTAL PROTEIN 7.5 g/dL (6.4-8.2)
[2021-03-01 15:45] LABS: % BASOS 1 % (0-3); % LYMPHS 81 % (24-48); % MONOS 1 % (0-10); % SEGS 11 % (35-66)
[2021-03-01 15:49] LABS: PLT ESTIMATE ADEQUATE (ADEQUATE)
[2021-03-01 16:16] LABS: % ATYL 6 % (0-0)
== END ==
LOC: ONCLAB 11:23
PROVIDERS: ATTEND Internal Medicine Hematology & Oncology
DX: C91.10 Chronic lymphocytic leukemia of B-cell type not having achieved remission (principal)
CPT/HCPCS: 36415; 80053; 83615; 85007; 85025

== ENCOUNTER → 2021-03-02 | Outpatient (CLI) | payer MEDICARE ==
--- NOTE | 2021-03-03 08:17 | RAD ---
CT THORAX WO INDICATION: L UPPER LUNG MASS COMPARISON STUDY: CTA 02/08/2021. TECHNIQUE: Unenhanced axial images were obtained through the lungs and upper abdomen. Coronal and sa gittal multiplanar reconstructions were also obtained. PQRS compliance statement: One or more of the following individualized dose reduction techniques were utilized for this examinat ion: 1. Automated exposure control 2. Adjustment of the mA and/or kV according to patient size 3. Use of iterative reconstruction technique FINDINGS: Lungs and Airways: Unchanged mild left apical subpleural opacities. Normal central airways. Pleura: The pleural spaces are normal. Heart and Mediastinum: The visualized thyroid gland is normal in size and attenuation. No axillary or supraclavicular lymphadenopathy. No mediastinal, hilar or retrocrural lymphadenopathy. Normal cardia c size. Coronary artery atherosclerotic disease. The great vessels of the thorax are normal. Abdomen: Mild right hydronephrosis. Bilateral renal calculi. Bones and Soft Tissues: Degenerative changes of the spine. IMPRESSION: 1. 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 2. Mild right hydronephrosis. Bilateral renal calculi. Electronically signed by: Sid Rodriguez MD (03/03/2021 8:15 AM) [facility]Joe
== END ==
LOC: CT 11:25
PROVIDERS: ATTEND Internal Medicine
DX: N13.39 Other hydronephrosis (principal); N20.0 Calculus of kidney
CPT/HCPCS: 71250

== ENCOUNTER → 2021-07-25 | Outpatient (CLI) | payer MEDICARE ==
[2021-07-25 11:09] LABS: BASO % 0 % (0-3); EOS # 0.1 x10^3/uL (0.0-0.7); EOS % 0 % (0-3); HEMATOCRIT 40.8 % (39.0-53.0); LYMPH # 31.8 x10^3/uL (1.0-4.8); LYMPH % 93 % (24-48); MEAN CORPUSCULAR HEMOGLOBIN 28 pg (25-35); MEAN CORPUSCULAR HGB CONC 32 g/dL (31-37); MEAN CORPUSCULAR VOLUME 87 fL (79-100); MONO # 0.2 x10^3/uL (0.0-1.1); MONO % 1 % (0-9); NEUT # 1.9 x10^3/uL (1.8-7.7); NEUT % 5 % (31-73); PLATELET COUNT 201 x10^3/uL (140-400); RED BLOOD COUNT 4.68 x10^6/uL (4.30-5.70); RED CELL DISTRIBUTION WIDTH 15.1 % (11.5-14.5); WHITE BLOOD COUNT 34.1 x10^3/uL (4.0-11.0)
[2021-07-25 11:34] LABS: CALCIUM 9.3 mg/dL (8.5-10.1); GFR 87.4; POTASSIUM 3.8 mmol/L (3.5-5.1)
[2021-07-25 11:38] LABS: ALBUMIN 3.8 g/dL (3.4-5.0); TOTAL BILIRUBIN 0.6 mg/dL (0.2-1.0); TOTAL PROTEIN 7.7 g/dL (6.4-8.2)
[2021-07-25 15:10] LABS: % LYMPHS 81 % (24-48); % MONOS 1 % (0-10); % SEGS 14 % (35-66)
[2021-07-25 15:11] LABS: % ATYL 3 % (0-0); % EOS 1 % (0-5); PLT ESTIMATE ADEQUATE (ADEQUATE)
[2021-07-26 13:29] LABS: ALBUM 4.1 g/dL (2.9-4.4); ALPHA 1 0.2 g/dL (0.0-0.4); ALPHA 2 0.7 g/dL (0.4-1.0); GAMMA 1.2 g/dL (0.4-1.8); PROTEIN TOTAL 7.2 g/dL (6.0-8.5); SPEP AG RATIO 1.3 (0.7-1.7)
[2021-07-26 16:10] LABS: KAPPA FREE 34.5 mg/L (3.3-19.4); KAPPA LAMBDA RATIO 2.74 (0.26-1.65); LAMBDA FREE 12.6 mg/L (5.7-26.3)
== END ==
LOC: ONCLAB 09:02
PROVIDERS: ATTEND Internal Medicine Hematology & Oncology
DX: C91.10 Chronic lymphocytic leukemia of B-cell type not having achieved remission (principal)
CPT/HCPCS: 36415; 80053; 83520; 83615; 84165; 85007; 85025

== ENCOUNTER → 2021-08-23 | Outpatient (CLI) | payer MEDICARE ==
[~2021-08-23] MED LIST changes: +CYCL10TA19 PO; -CYCL10TA2 PO
--- NOTE | 2021-08-23 16:47 | RAD ---
EXAM: Renal sonogram. HISTORY: Renal stone. TECHNIQUE: Sonographic imaging of the kidneys and bladder was performed. COMPARISON: CT dated 03/02/2021. FINDINGS: The kidneys are normal in size. There is a 1.1 cm simple appearing cyst within the inferior right kidney. There is mild to moderate bilateral hydronephrosis. The urinary bladder is unremarkabl e. The ureteral jets are not assessed on this exam. IMPRESSION: 1. Mild to moderate bilateral hydronephrosis. 2. Small simple right renal cyst. Follow-up is not routinely performed for simple cysts. 3. Note is made that previously described nephrolithiasis is not well seen sonographically. Electronically signed by: Nae Rivera MD (08/23/2021 4:45 PM) [id number]
== END ==
LOC: US 15:40
PROVIDERS: ATTEND Internal Medicine
DX: N20.0 Calculus of kidney (principal); N28.1 Cyst of kidney, acquired; N13.30 Unspecified hydronephrosis
CPT/HCPCS: 76770

== ENCOUNTER → 2021-12-13 | Outpatient (CLI) | payer MEDICARE ==
[2021-12-13 11:44] LABS: BASO % 0 % (0-3); EOS # 0.1 x10^3/uL (0.0-0.7); EOS % 0 % (0-3); HEMATOCRIT 41.6 % (39.0-53.0); HEMOGLOBIN 12.9 g/dL (13.0-17.5); LYMPH # 36.4 x10^3/uL (1.0-4.8); LYMPH % 94 % (24-48); MEAN CORPUSCULAR HEMOGLOBIN 26 pg (25-35); MEAN CORPUSCULAR HGB CONC 31 g/dL (31-37); MEAN CORPUSCULAR VOLUME 85 fL (79-100); MONO # 0.2 x10^3/uL (0.0-1.1); MONO % 1 % (0-9); NEUT # 1.9 x10^3/uL (1.8-7.7); NEUT % 5 % (31-73); PLATELET COUNT 179 x10^3/uL (140-400); RED BLOOD COUNT 4.88 x10^6/uL (4.30-5.70); RED CELL DISTRIBUTION WIDTH 14.9 % (11.5-14.5); WHITE BLOOD COUNT 38.6 x10^3/uL (4.0-11.0)
[2021-12-13 12:03] LABS: CALCIUM 8.6 mg/dL (8.5-10.1); CREATININE 1.2 mg/dL (0.7-1.3); GFR 70.7; POTASSIUM 3.6 mmol/L (3.5-5.1)
[2021-12-13 12:10] LABS: ALBUMIN 3.4 g/dL (3.4-5.0); ALBUMIN/GLOBULIN RATIO 0.9 (1.0-1.7); TOTAL BILIRUBIN 0.9 mg/dL (0.2-1.0); TOTAL PROTEIN 7.1 g/dL (6.4-8.2)
[2021-12-13 13:01] LABS: % LYMPHS 97 % (24-48); % SEGS 3 % (35-66); PLT ESTIMATE ADEQUATE (ADEQUATE); SMUDGE CELLS PRESENT
== END ==
LOC: ONCLAB 11:06
PROVIDERS: ATTEND Internal Medicine Hematology & Oncology
DX: C91.10 Chronic lymphocytic leukemia of B-cell type not having achieved remission (principal)
CPT/HCPCS: 36415; 80053; 83615; 85007; 85025

== ENCOUNTER 2022-01-15 08:23 | Inpatient (IN) | payer MEDICARE ==
[~2022-01-15] VITALS: Ht 177.8 cm; Wt 67.7 kg
[2022-01-15] MEDS ORDERED: IV NORMAL SALINE 1000ML BAG 1,000 ML IV SCH (08:45)
--- NOTE | 2022-01-15 08:52 | PHYS DOC ---
Past Medical History Past Medical History: Hypertension Past Surgical History: No Surgical History Smoking Status: Never Smoker Alcohol Use: None Drug Use: None General Adult EDM: Chief Complaint: ABDOMINAL PAIN HPI: HPI: 81 yo AA M PMH HTN and HLD presents to the ed with concern for liver disease, yellow skin for the past 2 days. States he was seen by his pcp, Dr. Elizalde, this past week. Reports he does not drink any alcohol, denies any IV drug use. No known history of hepatitis. Review of Systems: Review of Systems: Constitutional: Denies fever or chills. [] Eyes: Denies change in visual acuity. [] HENT: Denies nasal congestion or sore throat. [] Respiratory: Denies cough or shortness of breath. [] Cardiovascular: Denies chest pain or edema. [] GI: Denies abdominal pain, nausea, vomiting, bloody stools or diarrhea. [] : Denies dysuria or hematuria Musculoskeletal: Denies back pain or joint pain. [] Integument: Denies rash or diaphoresis Neurologic: Denies headache, focal weakness or sensory changes. [] Endocrine: Denies polyuria or polydipsia. [] Lymphatic: Denies swollen glands. [] Psychiatric: Denies depression or anxiety. [] Heart Score: C/O Chest Pain: No Risk Factors: Risk Factors: DM, Current or recent (<one month) smoker, HTN, HLP, family history of CAD, obesity. Risk Scores: Score 0 - 3: 2.5% MACE over next 6 weeks - Discharge Home Score 4 - 6: 20.3% MACE over next 6 weeks - Admit for Clinical Observation Score 7 - 10: 72.7% MACE over next 6 weeks - Early Invasive Strategies Allergies: Allergies: Allergies Coded Allergies Type Severity Reaction Last Updated Verified No Known Drug Allergies 08/21/15 No Physical Exam: PE: Constitutional: Well developed, well nourished, no acute distress, non-toxic appearance., thin HENT: Normocephalic, atraumatic, Eyes: EOMI, bilateral scleral icterus present, no discharge. Neck: Normal range of motion, supple, Cardiovascular: S1/2 present, regular rhythm Lungs & Thorax: Speaking in full sentences, bilateral equal chest rise, no tachypnea or increased work of breathing Abdomen: soft, no tenderness, Skin: Warm, dry, no erythema, no rash, no jaundice Extremities: No tenderness, no cyanosis, no lower extremity edema, no asterixis Neurologic: Alert and oriented X 3, normal motor function, normal sensory function, no focal deficits noted. [] Psychologic: Affect normal, judgement normal, mood normal. [] EKG: EKG: Sinus rhythm 86 bpm, right axis deviation, QTC 453, T wave inversion 1 aVL, no ST ovation or ST depression, P wave inverted in lead I and upright in aVR, concerning for limb lead discordance Radiology/Procedures: Radiology/Procedures: IMAGING REPORT Signed PATIENT: RAJAN OREILLY ACCOUNT: [id number] : 1940 LOCATION: ER AGE: 81 SEX: M EXAM STATUS: REG ER ORD. PHYSICIAN: TREVON MCDONOUGH DO REASON: jaundice PROCEDURE: ABDOMEN LTD EXAMINATION: US ABDOMEN LIMITED INDICATION: 81 years, Male, jaundice. COMPARISON: CT chest dated 03/02/2021 TECHNIQUE: Grayscale, color Doppler and limited spectral Doppler images of the right upper quadrant were obtained. FINDINGS: LIVER: SIZE (LENGTH): 11.5 cm. ECHOGENICITY: Normal PARENCHYMA: Homogeneous echotexture. No discrete focal lesion. INTRAHEPATIC BILE DUCTS: Dilated. PORTAL VEIN: Patent with normal hepatopedal flow. GALLBLADDER: GALLBLADDER WALL THICKNESS: 4 mm MORPHOLOGY: Gallbladder hydrops. Trace amount of pericholecystic free fluid. LUMEN: Multiple tiny cholelithiasis and sludge. COMMON BILE DUCT DIAMETER: 3 mm. RIGHT KIDNEY: MEASURES: 10.5 cm in length. MORPHOLOGY/PARENCHYMA: Normal corticomedullary differentiation with no shadowing calculus or discrete masses. COLLECTING SYSTEM: Mild hydronephrosis. PANCREAS: VISUALIZED PORTIONS: Head and proximal body APPEARANCE: Within normal limits. OTHER: RETROPERITONEUM, INFERIOR VENA CAVA: Normal caliber. AORTA: Not visualized. FLUID:No free fluid. IMPRESSION: 1. Dilated intrahepatic biliary ducts. Proximal CBD is normal in caliber. Gallbladder hydrops with mild wall thickening and multiple cholelithiasis with biliary sludge. Differential includes acute calculus cholecystitis with reactive intrahepatic biliary ductal dilation versus obstructing mass such as cholangiocarcinoma or calculus at the level of common hepatic duct. Recommend further evaluation MRI/MRCP abdomen without and with IV contrast. 2. Mild right hydronephrosis, essentially similar to previous CT chest exam. Electronically signed by: Shaun Izaguirre MD (01/15/2022 11:15 AM) [facility] DICTATED and SIGNED BY: SHAUN IZAGUIRRE MD DATE: 01/15/22 1106 IMAGING REPORT Signed PATIENT: RAJAN OREILLY ACCOUNT: [id number] : 1940 LOCATION: ER AGE: 81 SEX: M EXAM STATUS: REG ER ORD. PHYSICIAN: TREVON MCDONOUGH DO REASON: jaundice, conjugated hyperbilirubinemia PROCEDURE: CT ABD PELV W/ IV CONTRST ONLY EXAMINATION: CT abdomen and pelvis with IV contrast. INDICATION:81 years, Male, jaundice. TECHNIQUE: Axial CT images of the abdomen and pelvis were obtained. Coronal and sagittal reformatted performed. COMPARISON: Ultrasound dated 01/15/2022. Exposure: One or more of the following individualized dose reduction techniques were utilized for this examination: 1. Automated exposure control 2. Adjustment of the mA and/or kV according to patient size 3. Use of iterative reconstruction technique. FINDINGS: LOWER CHEST: Unremarkable. ABDOMEN/PELVIS: Redemonstrated gallbladder hydrops with mild wall thickening and trace amount of pericholecystic fluid. No significant pericholecystic fat stranding. Layering calcified cholelithiasis. Dilated bilateral intrahepatic biliary ducts to the level of desmond hepatis. Common bile duct is normal in caliber. Pancreas is unremarkable with no focal lesion or ductal dilation. No suspicious focal hepatic lesion. Spleen is normal. Nodular thickening of the adrenal glands without discrete nodule. Mild bilateral hydronephrosis without hydroureter. Nonobstructing bilateral nephrolithiasis, the largest in the upper pole right kidney measures 1.0 cm. Subcentimeter hypodensities in both renal cortices, too small to characterize. Small hiatal hernia. No bowel dilation. Appendix is not seen with certainty. No discrete lymphadenopathy in the abdomen by size criteria. Moderate to severe aortoiliac atherosclerotic calcifications without dilation or narrowing. Portal veins and mesenteric arteries are patent. No pneumoperitoneum or ascites. Large urinary bladder stone measures 1.4 cm. Prostamegaly indents bladder base. MUSCULOSKELETAL STRUCTURES: No suspicious osseous lesion or acute process. Degenerative changes in the spine. Small fat-containing umbilical hernia. IMPRESSION: 1. Overall findings could be related to occult obstructing mass at the desmond hepatis such as cholangiocarcinoma or obstructing noncalcified choledocholithiasis. Acute cholecystitis considers less likely. Recommend further evaluation with MRI/MRCP without and with IV contrast. 2. Mild to moderate bilateral hydronephrosis without hydroureter. Findings may relate to UPJ stenosis or chronic urinary bladder outlet obstruction from prostamegaly. Consider correlation with PSA level. 3. Nonobstructing bilateral nephrolithiasis and 1.4 cm urinary bladder stone. Electronically signed by: Shaun Izaguirre MD (01/15/2022 11:38 AM) [facility] DICTATED and SIGNED BY: SHAUN IZAGUIRRE MD DATE: 01/15/221122 Course & Med Decision Making: Course & Med Decision Making Pertinent Labs and Imaging studies reviewed. (See chart for details) Concern for conjugated hyperbilirubinemia in the setting of jaundice. Ultrasound and CT concerning for acute cholecystitis, will treat for this given white count, no bandemia. Imaging is also concerning for cholangiocarcinoma versus choledocholithiasis. Discussed these findings with GI, full consultation to follow. Will also place surgical consult. Will admit for further medical management. Patient stable at time of admission agrees with this plan. The wound was explored in a bloodless field after irrigation, with full range of motion. No tendon injury or foreign body visualized. Patient had normal strength with no neurological, vascular or muscular injury. Dragon Disclaimer: Dragon Disclaimer: This electronic medical record was generated, in whole or in part, using a voice recognition dictation system. Departure Departure Impression: Primary Impression: Acute cholecystitis Additional Impressions: Jaundice Conjugated hyperbilirubinemia Disposition: ADMITTED INPATIENT Admitting Physician: Dereck Elizalde Condition: GUARDED Referrals: DERECK ELIZALDE MD (PCP) TREVON MOSS DO Jan 15, 2022 08:52
--- NOTE | 2022-01-15 09:02 | RAD ---
Exam performed: One view chest. Indication: Reason: jaundice / Spl. Instructions: / History: Date of Service: 01/15/2022 8:49 AM Comparison: CT chest from 03/02/2021. Single AP upright portable view chest findings: Cardiomediastinal silhouette is within limits of normal. No acute infiltrates, effusion or pneumotho rax is detected. The bony structures are normal. Impression: No acute cardiopulmonary process is detected. Electronically signed by: Ana Benitez MD (01/15/2022 9:00 AM) [facility]
[2022-01-15 09:09] LABS: CALCIUM 9.1 mg/dL (8.5-10.1); CREATININE 0.9 mg/dL (0.7-1.3); GFR 98.5; POTASSIUM 3.8 mmol/L (3.5-5.1)
[2022-01-15 09:15] LABS: ALBUMIN 3.2 g/dL (3.4-5.0); DIRECT BILIRUBIN 11.5 mg/dL (0.0-0.2); TOTAL BILIRUBIN 13.9 mg/dL (0.2-1.0); TOTAL PROTEIN 7.5 g/dL (6.4-8.2)
[2022-01-15 09:26] LABS: PROTHROMBIN TIME PATIENT 12.7 SEC (11.7-14.0)
[2022-01-15 10:13] LABS: BASO % 0 % (0-3); EOS # 0.1 x10^3/uL (0.0-0.7); EOS % 0 % (0-3); HEMATOCRIT 39.3 % (39.0-53.0); HEMOGLOBIN 12.8 g/dL (13.0-17.5); LYMPH # 20.6 x10^3/uL (1.0-4.8); LYMPH % 76 % (24-48); MEAN CORPUSCULAR HEMOGLOBIN 27 pg (25-35); MEAN CORPUSCULAR HGB CONC 33 g/dL (31-37); MEAN CORPUSCULAR VOLUME 84 fL (79-100); MONO # 3.5 x10^3/uL (0.0-1.1); MONO % 13 % (0-9); NEUT % 11 % (31-73); PLATELET COUNT 269 x10^3/uL (140-400); RED CELL DISTRIBUTION WIDTH 16.6 % (11.5-14.5); WHITE BLOOD COUNT 27.2 x10^3/uL (4.0-11.0)
[2022-01-15 10:45] LABS: % ATYL 3 % (0-0); % LYMPHS 88 % (24-48); % MONOS 4 % (0-10); % SEGS 5 % (35-66); PLT ESTIMATE ADEQUATE (ADEQUATE)
[2022-01-15 10:46] LABS: SMUDGE CELLS PRESENT
[2022-01-15] MEDS ORDERED: IOHEXOL 300 MG/ML 100ML VIAL. IV ONE (11:00)
[2022-01-15] MEDS ORDERED: CONTRAST GIVEN. MC PRN (11:15)
--- NOTE | 2022-01-15 11:18 | RAD ---
EXAMINATION: US ABDOMEN LIMITED INDICATION: 81 years, Male, jaundice. COMPARISON: CT chest dated 03/02/2021 TECHNIQUE: Grayscale, color Doppler and limited spectral Doppler images of the right upper quadrant w ere obtained. FINDINGS: LIVER: SIZE (LENGTH): 11.5 cm. ECHOGENICITY: Normal PARENCHYMA: Homogeneous echotexture. No discrete focal lesion. INTRAHEPATIC BILE DUCTS: Dilated. PORTAL VEIN: Patent with normal hepatopedal flow. GALLBLADDER: GALLBLADDER WALL THICKNESS: 4 mm MORPHOLOGY: Gallbladder hydrops. Trace amount of pericholecystic free fluid. LUMEN: Multiple tiny cholelithiasis and sludge. COMMON BILE DUCT DIAMETER: 3 mm. RIGHT KIDNEY: MEASURES: 10.5 cm in length. MORPHOLOGY/PARENCHYMA: Normal corticomedullary differentiation with no shadowing calculus or discrete masses. COLLECTING SYSTEM: Mild hydronephrosis. PANCREAS: VISUALIZED PORTIONS: Head and proximal body APPEARANCE: Within normal limits. OTHER: RETROPERITONEUM, INFERIOR VENA CAVA: Normal caliber. AORTA: Not visualized. FLUID:No free fluid. IMPRESSION: 1. Dilated intrahepatic biliary ducts. Proximal CBD is normal in caliber. Gallbladder hydrops with mi ld wall thickening and multiple cholelithiasis with biliary sludge. Differential includes acute calcu janice cholecystitis with reactive intrahepatic biliary ductal dilation versus obstructing mass such as cholangiocarcinoma or calculus at the level of common hepatic duct. Recommend further evaluation MRI/ MRCP abdomen without and with IV contrast. 2. Mild right hydronephrosis, essentially similar to previous CT chest exam. Electronically signed by: Justin Izaguirre MD (01/15/2022 11:15 AM) [facility]
--- NOTE | 2022-01-15 11:40 | RAD ---
EXAMINATION: CT abdomen and pelvis with IV contrast. INDICATION:81 years, Male, jaundice. TECHNIQUE: Axial CT images of the abdomen and pelvis were obtained. Coronal and sagittal reformatted performed. COMPARISON: Ultrasound dated 01/15/2022. Exposure: One or more of the following individualized dose reduction techniques were utilized for thi s examination: 1. Automated exposure control 2. Adjustment of the mA and/or kV according to patient size 3. Use of iterative reconstruction technique. FINDINGS: LOWER CHEST: Unremarkable. ABDOMEN/PELVIS: Redemonstrated gallbladder hydrops with mild wall thickening and trace amount of pericholecystic flui d. No significant pericholecystic fat stranding. Layering calcified cholelithiasis. Dilated bilateral intrahepatic biliary ducts to the level of desmond hepatis. Common bile duct is normal in caliber. Whitney creas is unremarkable with no focal lesion or ductal dilation. No suspicious focal hepatic lesion. Spleen is normal. Nodular thickening of the adrenal glands withou t discrete nodule. Mild bilateral hydronephrosis without hydroureter. Nonobstructing bilateral nephro lithiasis, the largest in the upper pole right kidney measures 1.0 cm. Subcentimeter hypodensities in both renal cortices, too small to characterize. Small hiatal hernia. No bowel dilation. Appendix is not seen with certainty. No discrete lymphadenopa thy in the abdomen by size criteria. Moderate to severe aortoiliac atherosclerotic calcifications wit hout dilation or narrowing. Portal veins and mesenteric arteries are patent. No pneumoperitoneum or a scites. Large urinary bladder stone measures 1.4 cm. Prostamegaly indents bladder base. MUSCULOSKELETAL STRUCTURES: No suspicious osseous lesion or acute process. Degenerative changes in the spine. Small fat-containin g umbilical hernia. IMPRESSION: 1. Overall findings could be related to occult obstructing mass at the desmond hepatis such as cholang iocarcinoma or obstructing noncalcified choledocholithiasis. Acute cholecystitis considers less likel y. Recommend further evaluation with MRI/MRCP without and with IV contrast. 2. Mild to moderate bilateral hydronephrosis without hydroureter. Findings may relate to UPJ stenosi s or chronic urinary bladder outlet obstruction from prostamegaly. Consider correlation with PSA leve l. 3. Nonobstructing bilateral nephrolithiasis and 1.4 cm urinary bladder stone. Electronically signed by: Justin Izaguirre MD (01/15/2022 11:38 AM) [facility]
[2022-01-15] MEDS ORDERED: PIPERACILLIN/TAZOBACTAM 4.5 GM in IV DEXTROSE 5% 100ML 100 ML IV ONE (12:15)
[2022-01-15 13:54] LABS: BILIRUBIN,URINE LARGE (NEG); CLARITY,URINE CLEAR; COLOR,URINE AMBER; NITRITE,URINE NEGATIVE (NEG); PROTEIN,URINE NEGATIVE (NEG-TRACE); UROBILINOGEN,URINE 0.2 mg/dL (0.2 mg/dL)
[2022-01-15 13:55] LABS: BARBITURATES NEG (NEG); BENZODIAZEPINES NEG (NEG); CANNABINOIDS NEG (NEG); COCAINE NEG (NEG); METHADONE NEG (NEG); OPIATES NEG (NEG); PHENCYCLIDINE NEG (NEG)
[2022-01-15 13:56] LABS: AMPHETAMINE/METHAMPHETAMINE NEG (NEG)
[2022-01-15 13:59] LABS: BACTERIA,URINE 0 /HPF (0-FEW); HYALINE CASTS, URINE OCCASIONAL /HPF; WBC,URINE OCC /HPF (0-4)
[2022-01-15 14:01] LABS: RBC,URINE OCC /HPF (0-2)
[2022-01-15 15:00] VITALS: BP 162/82
[2022-01-15 16:26] VITALS: BP 162/82
--- NOTE | 2022-01-15 16:33 | NUR ---
Call placed to Dr. Gamboa's message center notifying him of consult from Dr. Moctezuma regarding acute cholecystitis, awaiting callback. Patient being kept NPO until further orders from Dr. Gamboa.
--- NOTE | 2022-01-15 17:43 | NUR ---
Call placed to Dr. Moctezuma's message center to obtain order to restart home meds.
[2022-01-15] MEDS ORDERED: fentaNYL PF VIAL 100 MCG/2 ML VIAL IVP PRN (18:30)
[2022-01-15] MEDS: IV NORMAL SALINE 1000ML BAG 1,000 ML IV SCH (18:30)
--- NOTE | 2022-01-15 18:37 | EKG ---
[facility] [address] [place] [address] Test Date: 2022-01-15 Test Time: 08:45:53 Pat Name: RAJAN OREILLY Department: Room: Gender: M Router Tender: : 1940 Requested By: TREVON MCDONOUGH Order Number: [id number] Reading MD: Measurements Intervals [place] Rate: 86 P: 133 [place]: 156 QRS: 152 QRSD: 96 T: 138 QT: 376 QTc: 453 Interpretive Statements SINUS RHYTHM ABNORMAL RIGHT AXIS DEVIATION QRS(T) CONTOUR ABNORMALITY CONSISTENT WITH HIGH LATERAL INFARCT AGE UNDETERMINED ABNORMAL ECG RI6.02 No previous ECG available for comparison
[2022-01-15 19:00] VITALS: BP 137/74
[2022-01-15 23:00] VITALS: BP 117/59
[2022-01-16 03:00] VITALS: BP 123/60
[2022-01-16] MEDS: IV NORMAL SALINE 1000ML BAG 1,000 ML IV SCH ×2 (04:51→19:06)
[2022-01-16 05:59] LABS: ALBUMIN 2.4 g/dL (3.4-5.0); ALBUMIN/GLOBULIN RATIO 0.7 (1.0-1.7); CALCIUM 8.4 mg/dL (8.5-10.1); GFR 87.2; POTASSIUM 4.5 mmol/L (3.5-5.1); TOTAL BILIRUBIN 11.4 mg/dL (0.2-1.0); TOTAL PROTEIN 5.7 g/dL (6.4-8.2)
[2022-01-16 06:59] LABS: BASO # 0.1 x10^3/uL (0.0-0.2); BASO % 0 % (0-3); EOS # 0.1 x10^3/uL (0.0-0.7); EOS % 0 % (0-3); HEMOGLOBIN 10.8 g/dL (13.0-17.5); LYMPH # 17.3 x10^3/uL (1.0-4.8); LYMPH % 76 % (24-48); MEAN CORPUSCULAR HEMOGLOBIN 28 pg (25-35); MEAN CORPUSCULAR HGB CONC 33 g/dL (31-37); MEAN CORPUSCULAR VOLUME 84 fL (79-100); MONO # 2.8 x10^3/uL (0.0-1.1); MONO % 12 % (0-9); NEUT # 2.7 x10^3/uL (1.8-7.7); NEUT % 12 % (31-73); PLATELET COUNT 219 x10^3/uL (140-400); RED BLOOD COUNT 3.94 x10^6/uL (4.30-5.70); RED CELL DISTRIBUTION WIDTH 16.8 % (11.5-14.5); WHITE BLOOD COUNT 22.9 x10^3/uL (4.0-11.0)
[2022-01-16 07:00] VITALS: BP 112/57
[2022-01-16] MEDS: PANTOPRAZOLE IV PUSH 40 MG VIAL. IVP SCH (09:02)
--- NOTE | 2022-01-16 09:20 | PDOC2 ---
LOWELL MCQUEEN Joe POLE SETTER 01/16/22 0920: CONSULT Date of Consult Date of Consult DATE: 01/16/22 TIME: 09:15 Reason for Consult Reason for Consult: possible cholecystitis Referring Physician Referring Physician: Dr Moctezuma Identification/Chief Complaint Chief Complaint jaundice Source Source: Chart review, Patient History of Present Illness Reason for Visit: Admitted with jaundice, some upper abdominal pain. D/w Dr Moctezuma, some hx of CLL. last labs noted elevated LFTS, weight loss and jaundice. Was in workup process when admitted CT concerning for obstructing mass at the desmond hepatis such as cholangiocarcinoma or obstructing noncalcified choledocholithiasis Past Medical History Cardiovascular: HTN Past Surgical History Past Surgical History: Other Family History Family History: Family History Unknown Social History ALCOHOL: none Drugs: None Lives: Alone Current Problem List Problem List Problems Medical Problems: (1) Acute cholecystitis Status: Acute (2) Conjugated hyperbilirubinemia Status: Acute (3) Jaundice Status: Acute Current Medications Current Medications Current Medications Sodium Chloride 1,000 ml @ 1,000 mls/hr Q1H IV Last administered on 01/15/22at 08:57; Start 01/15/22 at 08:45; Stop 01/15/22 at 09:44; Status DC Iohexol (Omnipaque 300 Mg/ml) 75 ml 1X ONCE IV Last administered on 01/15/22at 11:17; Start 01/15/22 at 11:00; Stop 01/15/22 at 11:02; Status DC Info (CONTRAST GIVEN -- Rx MONITORING) 1 each PRN DAILY PRN MC SEE COMMENTS; Start 01/15/22 at 11:15; Stop 01/17/22 at 11:14 Piperacillin Sod/ Tazobactam Sod 4.5 gm/Dextrose 100 ml @ 200 mls/hr 1X ONCE IV Last administered on 01/15/22at 12:16; Start 01/15/22 at 12:15; Stop 01/15/22 at 12:44; Status DC Pantoprazole Sodium (PROTONIX VIAL for IV PUSH) 40 mg DAILY IVP Last administered on 01/16/22at 09:02; Start 01/16/22 at 09:00 Fentanyl Citrate (Fentanyl 2ml Vial) 25 mcg PRN Q4HRS PRN IVP PAIN; Start 01/15/22 at 18:30 Sodium Chloride 1,000 ml @ 80 mls/hr [id number] IV Last administered on 01/16/22at 04:51; Start 01/15/22 at 18:30 Active Scripts Active Penicillin V Potassium 500 Mg Tablet 1 Tab PO QID Ondansetron Odt (Ondansetron) 4 Mg Tab.rapdis 1 Tab PO PRN Q6-8HRS Penicillin V Potassium 500 Mg Tablet 1 Tab PO QID Amlodipine Besylate 5 Mg Tablet 5 Mg PO DAILY Medrol (Methylprednisolone) 4 Mg Tab.ds.pk 1 Pkg PO UD Cyclobenzaprine Hcl 10 Mg Tablet 1 Tab PO TID Tylenol With Codeine #3 Tablet (Acetaminophen/Codeine Phosphate) 1 Each Tablet 1 Tab PO PRN Q6HRS PRN Lidoderm (Lidocaine) 700 Mg Adh..patch 1 Patch TP DAILY Pantoprazole Sodium (Pantoprazole Sodium) 40 Mg Tablet. 40 Mg PO DAILYAC Cozaar (Losartan Potassium) 50 Mg Tablet 50 Mg PO DAILY Aspirin Ec (Aspirin) 81 Mg Tablet. 81 Mg PO [id number] Reported Losartan Potassium (Losartan Potassium) 25 Mg Tablet 25 Mg PO DAILY Allergies Allergies: Coded Allergies: No Known Drug Allergies (Unverified , 08/21/15) ROS General: YES: Fatigue, Appetite (loss ) PSYCHOLOGICAL ROS: No: Anxiety, Depression Eyes: No Blurry vision, No Double vision HEENT: No: Heacaches, Sore Throat Hematological and Lymphatic: No: Bleeding Problems, Blood Clots Respiratory: No: Cough Cardiovascular: No Palpitations Gastrointestinal: Yes Other Genitourinary: YES Retention Musculoskeletal: No Joint Pain, No Muscle Pain Neurological: No Impaired Coord/balance, No Numbness/Tingling Skin: No Pruritus, No Rash Physical Exam General: Alert, Oriented X3, Cooperative, Other (thin) HEENT: Other (jaundice) Lungs: Clear to auscultation, Normal air movement Heart: Regular rate, Normal S1, Normal S2 Abdomen: Soft, Other (ND, NTTP) Extremities: No clubbing, No cyanosis Skin: No rashes, No breakdown Neuro: Normal gait, Normal speech Psych/Mental Status: Mental status NL, Mood NL MUSCULOSKELETAL: No deformity, No swelling Vitals VITALS Vital Signs Date Time Temp Pulse Resp B/P (MAP) Pulse Ox O2 Delivery O2 Flow Rate FiO2 01/16/22 07:00 98.5 75 18 112/57 (75) 97 Room Air 98.5 Labs Labs Laboratory Tests Test 01/15/22 08:40 01/15/22 13:36 01/16/22 04:35 01/16/22 07:56 White Blood Count 27.2 x10^3/uL (4.0-11.0) 22.9 x10^3/uL (4.0-11.0) Red Blood Count 4.70 x10^6/uL (4.30-5.70) 3.94 x10^6/uL (4.30-5.70) Hemoglobin 12.8 g/dL (13.0-17.5) 10.8 g/dL (13.0-17.5) Hematocrit 39.3 % (39.0-53.0) 33.0 % (39.0-53.0) Mean Corpuscular Volume 84 fL (79-100) 84 fL (79-100) Mean Corpuscular Hemoglobin 27 pg (25-35) 28 pg (25-35) Mean Corpuscular Hemoglobin Concent 33 g/dL (31-37) 33 g/dL (31-37) Red Cell Distribution Width 16.6 % (11.5-14.5) 16.8 % (11.5-14.5) Platelet Count 269 x10^3/uL (140-400) 219 x10^3/uL (140-400) Neutrophils (%) (Auto) 11 % (31-73) 12 % (31-73) Lymphocytes (%) (Auto) 76 % (24-48) 76 % (24-48) Monocytes (%) (Auto) 13 % (0-9) 12 % (0-9) Eosinophils (%) (Auto) 0 % (0-3) 0 % (0-3) Basophils (%) (Auto) 0 % (0-3) 0 % (0-3) Neutrophils # (Auto) 3.0 x10^3/uL (1.8-7.7) 2.7 x10^3/uL (1.8-7.7) Lymphocytes # (Auto) 20.6 x10^3/uL (1.0-4.8) 17.3 x10^3/uL (1.0-4.8) Monocytes # (Auto) 3.5 x10^3/uL (0.0-1.1) 2.8 x10^3/uL (0.0-1.1) Eosinophils # (Auto) 0.1 x10^3/uL (0.0-0.7) 0.1 x10^3/uL (0.0-0.7) Basophils # (Auto) 0.0 x10^3/uL (0.0-0.2) 0.1 x10^3/uL (0.0-0.2) Segmented Neutrophils % 5 % (35-66) Lymphocytes % 88 % (24-48) Atypical Lymphocytes % (Manual) 3 % (0-0) Monocytes % 4 % (0-10) Smudge Cells Present Platelet Estimate Adequate (ADEQUATE) Prothrombin Time 12.7 SEC (11.7-14.0) Prothromb Time International Ratio 1.0 (0.8-1.1) Activated Partial Thromboplast Time 29 SEC (24-38) Sodium Level 136 mmol/L (136-145) 141 mmol/L (136-145) Potassium Level 3.8 mmol/L (3.5-5.1) 4.5 mmol/L (3.5-5.1) Chloride Level 100 mmol/L (98-107) 108 mmol/L (98-107) Carbon Dioxide Level 29 mmol/L (21-32) 26 mmol/L (21-32) Anion Gap 7 (6-14) 7 (6-14) Blood Urea Nitrogen 11 mg/dL (8-26) 9 mg/dL (8-26) Creatinine 0.9 mg/dL (0.7-1.3) 1.0 mg/dL (0.7-1.3) Estimated GFR (Cockcroft-Gault) 98.5 87.2 Glucose Level 103 mg/dL (70-99) 70 mg/dL (70-99) Calcium Level 9.1 mg/dL (8.5-10.1) 8.4 mg/dL (8.5-10.1) Total Bilirubin 13.9 mg/dL (0.2-1.0) 11.4 mg/dL (0.2-1.0) Direct Bilirubin 11.5 mg/dL (0.0-0.2) Aspartate Amino Transf (AST/SGOT) 144 U/L (15-37) 103 U/L (15-37) Alanine Aminotransferase (ALT/SGPT) 326 U/L (16-63) 223 U/L (16-63) Alkaline Phosphatase 382 U/L (46-116) 285 U/L (46-116) Ammonia 22 mcmol/L (11-34) Creatine Kinase 211 U/L (39-308) Troponin I High Sensitivity 6 ng/L (4-75) Total Protein 7.5 g/dL (6.4-8.2) 5.7 g/dL (6.4-8.2) Albumin 3.2 g/dL (3.4-5.0) 2.4 g/dL (3.4-5.0) Urine Collection Type Unknown Urine Color Julia Urine Clarity Clear Urine pH 7.0 (<5.0-8.0) Urine Specific [place] 1.015 (1.000-1.030) Urine Protein Negative mg/dL (NEG-TRACE) Urine Glucose (UA) Negative mg/dL (NEG) Urine Ketones (Stick) Trace mg/dL (NEG) Urine Blood Negative (NEG) Urine Nitrite Negative (NEG) Urine Bilirubin Large (NEG) Urine Urobilinogen Dipstick 0.2 mg/dL (0.2 mg/dL) Urine Leukocyte Esterase Negative (NEG) Urine RBC Occ /HPF (0-2) Urine WBC Occ /HPF (0-4) Urine Squamous Epithelial Cells Occ /LPF Urine Bacteria 0 /HPF (0-FEW) Urine Hyaline Casts Occasional /HPF Urine Mucus Mod /LPF Urine Opiates Screen Neg (NEG) Urine Methadone Screen Neg (NEG) Urine Barbiturates Neg (NEG) Urine Phencyclidine Screen Neg (NEG) Urine Amphetamine/Methamphetamine Neg (NEG) Urine Benzodiazepines Screen Neg (NEG) Urine Cocaine Screen Neg (NEG) Urine Cannabinoids Screen Neg (NEG) Urine Ethyl Alcohol Neg (NEG) BUN/Creatinine Ratio 9 (6-20) Albumin/Globulin Ratio 0.7 (1.0-1.7) Lipase 867 U/L (73-393) Glucose (Fingerstick) 63 mg/dL (70-99) Laboratory Tests Test 01/15/22 13:36 01/16/22 04:35 01/16/22 07:56 Urine Collection Type Unknown Urine Color Julia Urine Clarity Clear Urine pH 7.0 (<5.0-8.0) Urine Specific [place] 1.015 (1.000-1.030) Urine Protein Negative mg/dL (NEG-TRACE) Urine Glucose (UA) Negative mg/dL (NEG) Urine Ketones (Stick) Trace mg/dL (NEG) Urine Blood Negative (NEG) Urine Nitrite Negative (NEG) Urine Bilirubin Large (NEG) Urine Urobilinogen Dipstick 0.2 mg/dL (0.2 mg/dL) Urine Leukocyte Esterase Negative (NEG) Urine RBC Occ /HPF (0-2) Urine WBC Occ /HPF (0-4) Urine Squamous Epithelial Cells Occ /LPF Urine Bacteria 0 /HPF (0-FEW) Urine Hyaline Casts Occasional /HPF Urine Mucus Mod /LPF Urine Opiates Screen Neg (NEG) Urine Methadone Screen Neg (NEG) Urine Barbiturates Neg (NEG) Urine Phencyclidine Screen Neg (NEG) Urine Amphetamine/Methamphetamine Neg (NEG) Urine Benzodiazepines Screen Neg (NEG) Urine Cocaine Screen Neg (NEG) Urine Cannabinoids Screen Neg (NEG) Urine Ethyl Alcohol Neg (NEG) White Blood Count 22.9 x10^3/uL (4.0-11.0) Red Blood Count 3.94 x10^6/uL (4.30-5.70) Hemoglobin 10.8 g/dL (13.0-17.5) Hematocrit 33.0 % (39.0-53.0) Mean Corpuscular Volume 84 fL (79-100) Mean Corpuscular Hemoglobin 28 pg (25-35) Mean Corpuscular Hemoglobin Concent 33 g/dL (31-37) Red Cell Distribution Width 16.8 % (11.5-14.5) Platelet Count 219 x10^3/uL (140-400) Neutrophils (%) (Auto) 12 % (31-73) Lymphocytes (%) (Auto) 76 % (24-48) Monocytes (%) (Auto) 12 % (0-9) Eosinophils (%) (Auto) 0 % (0-3) Basophils (%) (Auto) 0 % (0-3) Neutrophils # (Auto) 2.7 x10^3/uL (1.8-7.7) Lymphocytes # (Auto) 17.3 x10^3/uL (1.0-4.8) Monocytes # (Auto) 2.8 x10^3/uL (0.0-1.1) Eosinophils # (Auto) 0.1 x10^3/uL (0.0-0.7) Basophils # (Auto) 0.1 x10^3/uL (0.0-0.2) Sodium Level 141 mmol/L (136-145) Potassium Level 4.5 mmol/L (3.5-5.1) Chloride Level 108 mmol/L (98-107) Carbon Dioxide Level 26 mmol/L (21-32) Anion Gap 7 (6-14) Blood Urea Nitrogen 9 mg/dL (8-26) Creatinine 1.0 mg/dL (0.7-1.3) Estimated GFR (Cockcroft-Gault) 87.2 BUN/Creatinine Ratio 9 (6-20) Glucose Level 70 mg/dL (70-99) Calcium Level 8.4 mg/dL (8.5-10.1) Total Bilirubin 11.4 mg/dL (0.2-1.0) Aspartate Amino Transf (AST/SGOT) 103 U/L (15-37) Alanine Aminotransferase (ALT/SGPT) 223 U/L (16-63) Alkaline Phosphatase 285 U/L (46-116) Total Protein 5.7 g/dL (6.4-8.2) Albumin 2.4 g/dL (3.4-5.0) Albumin/Globulin Ratio 0.7 (1.0-1.7) Lipase 867 U/L (73-393) Glucose (Fingerstick) 63 mg/dL (70-99) Assessment/Plan Assessment/Plan jaundice, weight loss concern for obstructing mass at the desmond hepatis such as cholangiocarcinoma or obstructing noncalcified choledocholithiasis on imaging D/w GI, plan for MRCP may need EUS LAYO HERNANDEZ MD 01/16/22 1031: CONSULT Assessment/Plan Assessment/Plan Patient seen and examined by me is currently resting comfortably in bed really denies no pain significant jaundice. Review of CT scan concerning for possible mass at the desmond hepatis causing obstruction his bilirubin is quite elevated more so than would be expected for cholecystitis. Agree with further work-up of MRCP. Agree with Jami's assessment plan LOWELL MCQUEEN APRN Jan 16, 2022 09:20 LAYO HERNANDEZ MD Jan 16, 2022 10:31
--- NOTE | 2022-01-16 09:24 | PDOC ---
Provider Note Date of Service: DATE: 01/16/22 TIME: 09:24 Provider Note Pt seen.H&P dictated.#[id number]. Justifications for Admission Other Justification REJI ELIZALDE MD Jan 16, 2022 09:24
--- NOTE | 2022-01-16 09:35 | PDOC2 ---
GI CONSULT Date of Service: DATE: 01/16/22 TIME: 09:34 Reason For Consult: acute linda vs cancer HPI: HPI: 81 y/o male admitted through ER. Notable labs: bili 13.9 (now 11.4), AST 144 (now 103), ALT 326 (223), Alk Phos 382 (now 285), lipase 867. On imaging: intrahepatic biliary dilatation, GB hydrops w/ mild wall thickening, cholelithiasis and GB sludge, concern for obstructing mass at desmond hepatis (cholangiocarcinoma or obstructing noncalcified choledocholithiasis). Says has been jaundiced "for awhile." More recently w/ decreased appetite and weight loss. Yesterday had some mid-lower abdominal discomfort that resolved when he arrived at the hospital - he thinks maybe related to something he ate. Not moving his bowels very often but doesn't feel constipated. No pruritus. Urine has been dark intermittently. Denies reflux/heartburn, dysphagia, n/v, diarrhea, hematochezia, or melena. Unsure if had previous EGD, but reports normal colonoscopy "years ago" here at [facility]. Denies GB, liver, pancreas, and PUD history. Takes ASA. Pantoprazole on summary list. Talks a lot about chronic issue w/ dizziness when laying flat. PMH: PMH: HTN, HLD, tinnitus, hydronephrosis, nephrolithiasis, CLL FH: Family History: CAD Social History: ALCOHOL: none Drugs: None ROS: GEN: Denies fevers, chills, sweats HEENT: Denies blurred vision, sore throat CV: Denies chest pain RESP: Denies shortness of air, cough GI: Per HPI : +dark urine ENDO: +weight loss NEURO: +dizziness MSK: Denies weakness, joint pain/swelling SKIN: +jaundice Vitals: Vitals: Vital Signs Date Time Temp Pulse Resp B/P (MAP) Pulse Ox O2 Delivery O2 Flow Rate FiO2 01/16/22 07:00 98.5 75 18 112/57 (75) 97 Room Air 98.5 Labs: Labs: Laboratory Tests Test 01/15/22 13:36 01/16/22 04:35 01/16/22 07:56 Urine Collection Type Unknown Urine Color Julia Urine Clarity Clear Urine pH 7.0 (<5.0-8.0) Urine Specific [place] 1.015 (1.000-1.030) Urine Protein Negative mg/dL (NEG-TRACE) Urine Glucose (UA) Negative mg/dL (NEG) Urine Ketones (Stick) Trace mg/dL (NEG) Urine Blood Negative (NEG) Urine Nitrite Negative (NEG) Urine Bilirubin Large (NEG) Urine Urobilinogen Dipstick 0.2 mg/dL (0.2 mg/dL) Urine Leukocyte Esterase Negative (NEG) Urine RBC Occ /HPF (0-2) Urine WBC Occ /HPF (0-4) Urine Squamous Epithelial Cells Occ /LPF Urine Bacteria 0 /HPF (0-FEW) Urine Hyaline Casts Occasional /HPF Urine Mucus Mod /LPF Urine Opiates Screen Neg (NEG) Urine Methadone Screen Neg (NEG) Urine Barbiturates Neg (NEG) Urine Phencyclidine Screen Neg (NEG) Urine Amphetamine/Methamphetamine Neg (NEG) Urine Benzodiazepines Screen Neg (NEG) Urine Cocaine Screen Neg (NEG) Urine Cannabinoids Screen Neg (NEG) Urine Ethyl Alcohol Neg (NEG) White Blood Count 22.9 x10^3/uL (4.0-11.0) Red Blood Count 3.94 x10^6/uL (4.30-5.70) Hemoglobin 10.8 g/dL (13.0-17.5) Hematocrit 33.0 % (39.0-53.0) Mean Corpuscular Volume 84 fL (79-100) Mean Corpuscular Hemoglobin 28 pg (25-35) Mean Corpuscular Hemoglobin Concent 33 g/dL (31-37) Red Cell Distribution Width 16.8 % (11.5-14.5) Platelet Count 219 x10^3/uL (140-400) Neutrophils (%) (Auto) 12 % (31-73) Lymphocytes (%) (Auto) 76 % (24-48) Monocytes (%) (Auto) 12 % (0-9) Eosinophils (%) (Auto) 0 % (0-3) Basophils (%) (Auto) 0 % (0-3) Neutrophils # (Auto) 2.7 x10^3/uL (1.8-7.7) Lymphocytes # (Auto) 17.3 x10^3/uL (1.0-4.8) Monocytes # (Auto) 2.8 x10^3/uL (0.0-1.1) Eosinophils # (Auto) 0.1 x10^3/uL (0.0-0.7) Basophils # (Auto) 0.1 x10^3/uL (0.0-0.2) Sodium Level 141 mmol/L (136-145) Potassium Level 4.5 mmol/L (3.5-5.1) Chloride Level 108 mmol/L (98-107) Carbon Dioxide Level 26 mmol/L (21-32) Anion Gap 7 (6-14) Blood Urea Nitrogen 9 mg/dL (8-26) Creatinine 1.0 mg/dL (0.7-1.3) Estimated GFR (Cockcroft-Gault) 87.2 BUN/Creatinine Ratio 9 (6-20) Glucose Level 70 mg/dL (70-99) Calcium Level 8.4 mg/dL (8.5-10.1) Total Bilirubin 11.4 mg/dL (0.2-1.0) Aspartate Amino Transf (AST/SGOT) 103 U/L (15-37) Alanine Aminotransferase (ALT/SGPT) 223 U/L (16-63) Alkaline Phosphatase 285 U/L (46-116) Total Protein 5.7 g/dL (6.4-8.2) Albumin 2.4 g/dL (3.4-5.0) Albumin/Globulin Ratio 0.7 (1.0-1.7) Lipase 867 U/L (73-393) Glucose (Fingerstick) 63 mg/dL (70-99) Allergies: Coded Allergies: No Known Drug Allergies (Unverified , 08/21/15) Medications: Current Medications Medications (Trade) Dose Ordered Sig/Kam Route PRN Reason Start Time Stop Time Status Last Admin Dose Admin Iohexol (Omnipaque 300 Mg/ml) 75 ml 1X ONCE IV 01/15/22 11:00 01/15/22 11:02 DC 01/15/22 11:17 Piperacillin Sod/ Tazobactam Sod 4.5 gm/Dextrose 100 ml @ 200 mls/hr 1X ONCE IV 01/15/22 12:15 01/15/22 12:44 DC 01/15/22 12:16 Pantoprazole Sodium (PROTONIX VIAL for IV PUSH) 40 mg DAILY IVP 01/16/22 09:00 01/16/22 09:02 Sodium Chloride 1,000 ml @ 80 mls/hr [id number] IV 01/15/22 18:30 01/16/22 04:51 Imaging: Imaging: CXR Impression: No acute cardiopulmonary process is detected. Abd US FINDINGS: LIVER: SIZE (LENGTH): 11.5 cm. ECHOGENICITY: Normal PARENCHYMA: Homogeneous echotexture. No discrete focal lesion. INTRAHEPATIC BILE DUCTS: Dilated. PORTAL VEIN: Patent with normal hepatopedal flow. GALLBLADDER: GALLBLADDER WALL THICKNESS: 4 mm MORPHOLOGY: Gallbladder hydrops. Trace amount of pericholecystic free fluid. LUMEN: Multiple tiny cholelithiasis and sludge. COMMON BILE DUCT DIAMETER: 3 mm. RIGHT KIDNEY: MEASURES: 10.5 cm in length. MORPHOLOGY/PARENCHYMA: Normal corticomedullary differentiation with no shadowing calculus or discrete masses. COLLECTING SYSTEM: Mild hydronephrosis. PANCREAS: VISUALIZED PORTIONS: Head and proximal body APPEARANCE: Within normal limits. OTHER: RETROPERITONEUM, INFERIOR VENA CAVA: Normal caliber. AORTA: Not visualized. FLUID:No free fluid. IMPRESSION: 1. Dilated intrahepatic biliary ducts. Proximal CBD is normal in caliber. Gallbladder hydrops with mild wall thickening and multiple cholelithiasis with biliary sludge. Differential includes acute calculus cholecystitis with reactive intrahepatic biliary ductal dilation versus obstructing mass such as cholangiocarcinoma or calculus at the level of common hepatic duct. Recommend further evaluation MRI/MRCP abdomen without and with IV contrast. 2. Mild right hydronephrosis, essentially similar to previous CT chest exam. CT A/P IMPRESSION: 1. Overall findings could be related to occult obstructing mass at the desmond hepatis such as cholangiocarcinoma or obstructing noncalcified choledocholithiasis. Acute cholecystitis considers less likely. Recommend further evaluation with MRI/MRCP without and with IV contrast. 2. Mild to moderate bilateral hydronephrosis without hydroureter. Findings may relate to UPJ stenosis or chronic urinary bladder outlet obstruction from prostamegaly. Consider correlation with PSA level. 3. Nonobstructing bilateral nephrolithiasis and 1.4 cm urinary bladder stone. PE: GEN: NAD HEENT: Atraumatic, PERRL LUNGS: CTAB HEART: RRR ABD: NABS, S/ND/NT EXTREMITY: No edema SKIN: +jaundice NEURO/PSYCH: A & O 3 A/P: A/P: Mid/lower abdominal discomfort - resolved Jaundice, decreased appetite, weight loss - ongoing Leukocytosis, mild anemia, h/o CLL Abnormal imaging - intrahepatic biliary dilatation, concern for obstructing mass at desmond hepatis, cholelithiasis CRC screen - reportedly normal long ago Bilateral hydronephrosis, nonobstructing bilateral nephrolithiasis and urinary bladder stone, prostamegaly -- Concern for malignancy. D/w Dr. Morrell and Rosie/surgery - will ask for MRCP. MARYJO JEAN BAPTISTE Jan 16, 2022 09:34
--- NOTE | 2022-01-16 09:54 | NUR ---
SW following. Discussed with RN, pt from home alone, room air, NPO, ad lucina. Nephrology, Surgery and GI following. MRCP today. RN advised no SW needs at this time. SW will continue to follow.
--- NOTE | 2022-01-16 10:32 | PDOC2 ---
CONSULT Date of Consult Date of Consult DATE: 01/16/22 TIME: 10:19 Reason for Consult Reason for Consult: Hydronephrosis Source Source: Chart review, Patient History of Present Illness Reason for Visit: Patient is a 81 yo Male admitted with jaundice, upper abdominal pain. Have been undergoing work up for weight loss, elevated LFT's and jaundice. Was seen last year by Dr. Diana, Hematology and was diagnosed with possible CLL. Seen him 2 weeks ago and he lost 15 pounds in 3 months and routine labs shows bilirubin was 8 and LFTs were elevated. Denies any N/V/D. No CP or SOB. Denies any F/C. Denies any urinary complaints. Denies passing any kidney stones . Denies use of NSAID's Past Medical History Cardiovascular: HTN Past Surgical History Past Surgical History: Other Family History Family History: Family History Unknown Social History ALCOHOL: none Drugs: None Lives: Alone Current Problem List Problem List Problems Medical Problems: (1) Acute cholecystitis Status: Acute (2) Conjugated hyperbilirubinemia Status: Acute (3) Jaundice Status: Acute Current Medications Current Medications Current Medications Sodium Chloride 1,000 ml @ 1,000 mls/hr Q1H IV Last administered on 01/15/22at 08:57; Start 01/15/22 at 08:45; Stop 01/15/22 at 09:44; Status DC Iohexol (Omnipaque 300 Mg/ml) 75 ml 1X ONCE IV Last administered on 01/15/22at 11:17; Start 01/15/22 at 11:00; Stop 01/15/22 at 11:02; Status DC Info (CONTRAST GIVEN -- Rx MONITORING) 1 each PRN DAILY PRN MC SEE COMMENTS; Start 01/15/22 at 11:15; Stop 01/17/22 at 11:14 Piperacillin Sod/ Tazobactam Sod 4.5 gm/Dextrose 100 ml @ 200 mls/hr 1X ONCE IV Last administered on 01/15/22at 12:16; Start 01/15/22 at 12:15; Stop 01/15/22 at 12:44; Status DC Pantoprazole Sodium (PROTONIX VIAL for IV PUSH) 40 mg DAILY IVP Last administered on 01/16/22at 09:02; Start 01/16/22 at 09:00 Fentanyl Citrate (Fentanyl 2ml Vial) 25 mcg PRN Q4HRS PRN IVP PAIN; Start 01/15/22 at 18:30 Sodium Chloride 1,000 ml @ 80 mls/hr [id number] IV Last administered on 01/16/22at 04:51; Start 01/15/22 at 18:30 Amlodipine Besylate (Norvasc) 5 mg DAILY PO ; Start 01/17/22 at 09:00 Active Scripts Active Penicillin V Potassium 500 Mg Tablet 1 Tab PO QID Ondansetron Odt (Ondansetron) 4 Mg Tab.rapdis 1 Tab PO PRN Q6-8HRS Penicillin V Potassium 500 Mg Tablet 1 Tab PO QID Amlodipine Besylate 5 Mg Tablet 5 Mg PO DAILY Medrol (Methylprednisolone) 4 Mg Tab.ds.pk 1 Pkg PO UD Cyclobenzaprine Hcl 10 Mg Tablet 1 Tab PO TID Tylenol With Codeine #3 Tablet (Acetaminophen/Codeine Phosphate) 1 Each Tablet 1 Tab PO PRN Q6HRS PRN Lidoderm (Lidocaine) 700 Mg Adh..patch 1 Patch TP DAILY Pantoprazole Sodium (Pantoprazole Sodium) 40 Mg Tablet. 40 Mg PO DAILYAC Cozaar (Losartan Potassium) 50 Mg Tablet 50 Mg PO DAILY Aspirin Ec (Aspirin) 81 Mg Tablet. 81 Mg PO DAILYWBKFT Reported Losartan Potassium (Losartan Potassium) 25 Mg Tablet 25 Mg PO DAILY Allergies Allergies: Coded Allergies: No Known Drug Allergies (Unverified , 08/21/15) ROS Review of System As per HPI, rest of the ROS is negative Physical Exam Physical Exam General: NAD HEENT: Icterus + , OM moist Neck Supple Lungs: Clear to auscultation, Normal air movement Heart: Regular rate, Normal S1, Normal S2 Abdomen: Soft, ND, NTTP Extremities: No clubbing, No cyanosis Skin: No rashes, No breakdown, Neuro: Grossly normal, No focal deficit Psych/Mental Status: Cooperative Valverde placed at admission , No CVA or SP tenderness Vital Signs Vital Signs Date Time Temp Pulse Resp B/P (MAP) Pulse Ox O2 Delivery O2 Flow Rate FiO2 01/16/22 07:00 98.5 75 18 112/57 (75) 97 Room Air 98.5 Assessment & Plan Hydronephrosis - Mild to moderate bilateral hydronephrosis without hydroureter. Findings may relate to UPJ stenosis or chronic urinary bladder outlet obstruction from prostamegaly. Urology Consulted CKD stage 2- Creatine Normal Baseline 0.8-1.2 . Supportive care, Maintain fluid balance. Avoid Nephrotoxins Renal/ bladder Calculus - Nonobstructing bilateral nephrolithiasis and 1.4 cm urinary bladder stone BPH- Prostamegaly indents bladder base. Per urology Jaundice/ Hyperbilirubinemia/Abnormal LFT's - CT abdomen- findings cw Obstructive etiology such as cholangiocarcinoma or obstructing noncalcified choledocholithiasis. MRI/MRCP per GI Chronic elevated white count, possible, given diagnosis of CLL. Labs Labs Laboratory Tests Test 01/15/22 08:40 01/15/22 13:36 01/16/22 04:35 01/16/22 07:56 White Blood Count 27.2 x10^3/uL (4.0-11.0) 22.9 x10^3/uL (4.0-11.0) Red Blood Count 4.70 x10^6/uL (4.30-5.70) 3.94 x10^6/uL (4.30-5.70) Hemoglobin 12.8 g/dL (13.0-17.5) 10.8 g/dL (13.0-17.5) Hematocrit 39.3 % (39.0-53.0) 33.0 % (39.0-53.0) Mean Corpuscular Volume 84 fL (79-100) 84 fL (79-100) Mean Corpuscular Hemoglobin 27 pg (25-35) 28 pg (25-35) Mean Corpuscular Hemoglobin Concent 33 g/dL (31-37) 33 g/dL (31-37) Red Cell Distribution Width 16.6 % (11.5-14.5) 16.8 % (11.5-14.5) Platelet Count 269 x10^3/uL (140-400) 219 x10^3/uL (140-400) Neutrophils (%) (Auto) 11 % (31-73) 12 % (31-73) Lymphocytes (%) (Auto) 76 % (24-48) 76 % (24-48) Monocytes (%) (Auto) 13 % (0-9) 12 % (0-9) Eosinophils (%) (Auto) 0 % (0-3) 0 % (0-3) Basophils (%) (Auto) 0 % (0-3) 0 % (0-3) Neutrophils # (Auto) 3.0 x10^3/uL (1.8-7.7) 2.7 x10^3/uL (1.8-7.7) Lymphocytes # (Auto) 20.6 x10^3/uL (1.0-4.8) 17.3 x10^3/uL (1.0-4.8) Monocytes # (Auto) 3.5 x10^3/uL (0.0-1.1) 2.8 x10^3/uL (0.0-1.1) Eosinophils # (Auto) 0.1 x10^3/uL (0.0-0.7) 0.1 x10^3/uL (0.0-0.7) Basophils # (Auto) 0.0 x10^3/uL (0.0-0.2) 0.1 x10^3/uL (0.0-0.2) Segmented Neutrophils % 5 % (35-66) Lymphocytes % 88 % (24-48) Atypical Lymphocytes % (Manual) 3 % (0-0) Monocytes % 4 % (0-10) Smudge Cells Present Platelet Estimate Adequate (ADEQUATE) Prothrombin Time 12.7 SEC (11.7-14.0) Prothromb Time International Ratio 1.0 (0.8-1.1) Activated Partial Thromboplast Time 29 SEC (24-38) Sodium Level 136 mmol/L (136-145) 141 mmol/L (136-145) Potassium Level 3.8 mmol/L (3.5-5.1) 4.5 mmol/L (3.5-5.1) Chloride Level 100 mmol/L (98-107) 108 mmol/L (98-107) Carbon Dioxide Level 29 mmol/L (21-32) 26 mmol/L (21-32) Anion Gap 7 (6-14) 7 (6-14) Blood Urea Nitrogen 11 mg/dL (8-26) 9 mg/dL (8-26) Creatinine 0.9 mg/dL (0.7-1.3) 1.0 mg/dL (0.7-1.3) Estimated GFR (Cockcroft-Gault) 98.5 87.2 Glucose Level 103 mg/dL (70-99) 70 mg/dL (70-99) Calcium Level 9.1 mg/dL (8.5-10.1) 8.4 mg/dL (8.5-10.1) Total Bilirubin 13.9 mg/dL (0.2-1.0) 11.4 mg/dL (0.2-1.0) Direct Bilirubin 11.5 mg/dL (0.0-0.2) Aspartate Amino Transf (AST/SGOT) 144 U/L (15-37) 103 U/L (15-37) Alanine Aminotransferase (ALT/SGPT) 326 U/L (16-63) 223 U/L (16-63) Alkaline Phosphatase 382 U/L (46-116) 285 U/L (46-116) Ammonia 22 mcmol/L (11-34) Creatine Kinase 211 U/L (39-308) Troponin I High Sensitivity 6 ng/L (4-75) Total Protein 7.5 g/dL (6.4-8.2) 5.7 g/dL (6.4-8.2) Albumin 3.2 g/dL (3.4-5.0) 2.4 g/dL (3.4-5.0) Urine Collection Type Unknown Urine Color Julia Urine Clarity Clear Urine pH 7.0 (<5.0-8.0) Urine Specific [place] 1.015 (1.000-1.030) Urine Protein Negative mg/dL (NEG-TRACE) Urine Glucose (UA) Negative mg/dL (NEG) Urine Ketones (Stick) Trace mg/dL (NEG) Urine Blood Negative (NEG) Urine Nitrite Negative (NEG) Urine Bilirubin Large (NEG) Urine Urobilinogen Dipstick 0.2 mg/dL (0.2 mg/dL) Urine Leukocyte Esterase Negative (NEG) Urine RBC Occ /HPF (0-2) Urine WBC Occ /HPF (0-4) Urine Squamous Epithelial Cells Occ /LPF Urine Bacteria 0 /HPF (0-FEW) Urine Hyaline Casts Occasional /HPF Urine Mucus Mod /LPF Urine Opiates Screen Neg (NEG) Urine Methadone Screen Neg (NEG) Urine Barbiturates Neg (NEG) Urine Phencyclidine Screen Neg (NEG) Urine Amphetamine/Methamphetamine Neg (NEG) Urine Benzodiazepines Screen Neg (NEG) Urine Cocaine Screen Neg (NEG) Urine Cannabinoids Screen Neg (NEG) Urine Ethyl Alcohol Neg (NEG) BUN/Creatinine Ratio 9 (6-20) Albumin/Globulin Ratio 0.7 (1.0-1.7) Lipase 867 U/L (73-393) Glucose (Fingerstick) 63 mg/dL (70-99) Laboratory Tests Test 01/15/22 13:36 01/16/22 04:35 01/16/22 07:56 Urine Collection Type Unknown Urine Color Julia Urine Clarity Clear Urine pH 7.0 (<5.0-8.0) Urine Specific [place] 1.015 (1.000-1.030) Urine Protein Negative mg/dL (NEG-TRACE) Urine Glucose (UA) Negative mg/dL (NEG) Urine Ketones (Stick) Trace mg/dL (NEG) Urine Blood Negative (NEG) Urine Nitrite Negative (NEG) Urine Bilirubin Large (NEG) Urine Urobilinogen Dipstick 0.2 mg/dL (0.2 mg/dL) Urine Leukocyte Esterase Negative (NEG) Urine RBC Occ /HPF (0-2) Urine WBC Occ /HPF (0-4) Urine Squamous Epithelial Cells Occ /LPF Urine Bacteria 0 /HPF (0-FEW) Urine Hyaline Casts Occasional /HPF Urine Mucus Mod /LPF Urine Opiates Screen Neg (NEG) Urine Methadone Screen Neg (NEG) Urine Barbiturates Neg (NEG) Urine Phencyclidine Screen Neg (NEG) Urine Amphetamine/Methamphetamine Neg (NEG) Urine Benzodiazepines Screen Neg (NEG) Urine Cocaine Screen Neg (NEG) Urine Cannabinoids Screen Neg (NEG) Urine Ethyl Alcohol Neg (NEG) White Blood Count 22.9 x10^3/uL (4.0-11.0) Red Blood Count 3.94 x10^6/uL (4.30-5.70) Hemoglobin 10.8 g/dL (13.0-17.5) Hematocrit 33.0 % (39.0-53.0) Mean Corpuscular Volume 84 fL (79-100) Mean Corpuscular Hemoglobin 28 pg (25-35) Mean Corpuscular Hemoglobin Concent 33 g/dL (31-37) Red Cell Distribution Width 16.8 % (11.5-14.5) Platelet Count 219 x10^3/uL (140-400) Neutrophils (%) (Auto) 12 % (31-73) Lymphocytes (%) (Auto) 76 % (24-48) Monocytes (%) (Auto) 12 % (0-9) Eosinophils (%) (Auto) 0 % (0-3) Basophils (%) (Auto) 0 % (0-3) Neutrophils # (Auto) 2.7 x10^3/uL (1.8-7.7) Lymphocytes # (Auto) 17.3 x10^3/uL (1.0-4.8) Monocytes # (Auto) 2.8 x10^3/uL (0.0-1.1) Eosinophils # (Auto) 0.1 x10^3/uL (0.0-0.7) Basophils # (Auto) 0.1 x10^3/uL (0.0-0.2) Sodium Level 141 mmol/L (136-145) Potassium Level 4.5 mmol/L (3.5-5.1) Chloride Level 108 mmol/L (98-107) Carbon Dioxide Level 26 mmol/L (21-32) Anion Gap 7 (6-14) Blood Urea Nitrogen 9 mg/dL (8-26) Creatinine 1.0 mg/dL (0.7-1.3) Estimated GFR (Cockcroft-Gault) 87.2 BUN/Creatinine Ratio 9 (6-20) Glucose Level 70 mg/dL (70-99) Calcium Level 8.4 mg/dL (8.5-10.1) Total Bilirubin 11.4 mg/dL (0.2-1.0) Aspartate Amino Transf (AST/SGOT) 103 U/L (15-37) Alanine Aminotransferase (ALT/SGPT) 223 U/L (16-63) Alkaline Phosphatase 285 U/L (46-116) Total Protein 5.7 g/dL (6.4-8.2) Albumin 2.4 g/dL (3.4-5.0) Albumin/Globulin Ratio 0.7 (1.0-1.7) Lipase 867 U/L (73-393) Glucose (Fingerstick) 63 mg/dL (70-99) Review All relevant outside records, renal labs, imaging studies, telemetry/EKG's were reviewed. Images Images EXAMINATION: CT abdomen and pelvis with IV contrast. INDICATION:81 years, Male, jaundice. TECHNIQUE: Axial CT images of the abdomen and pelvis were obtained. Coronal and sagittal reformatted performed. COMPARISON: Ultrasound dated 01/15/2022. Exposure: One or more of the following individualized dose reduction techniques were utilized for this examination: 1. Automated exposure control 2. Adjustment of the mA and/or kV according to patient size 3. Use of iterative reconstruction technique. FINDINGS: LOWER CHEST: Unremarkable. ABDOMEN/PELVIS: Redemonstrated gallbladder hydrops with mild wall thickening and trace amount of pericholecystic fluid. No significant pericholecystic fat stranding. Layering calcified cholelithiasis. Dilated bilateral intrahepatic biliary ducts to the level of desmond hepatis. Common bile duct is normal in caliber. Pancreas is unremarkable with no focal lesion or ductal dilation. No suspicious focal hepatic lesion. Spleen is normal. Nodular thickening of the adrenal glands without discrete nodule. Mild bilateral hydronephrosis without hydroureter. Nonobstructing bilateral nephrolithiasis, the largest in the upper pole right kidney measures 1.0 cm. Subcentimeter hypodensities in both renal cortices, too small to characterize. Small hiatal hernia. No bowel dilation. Appendix is not seen with certainty. No discrete lymphadenopathy in the abdomen by size criteria. Moderate to severe aortoiliac atherosclerotic calcifications without dilation or narrowing. Portal veins and mesenteric arteries are patent. No pneumoperitoneum or ascites. Large urinary bladder stone measures 1.4 cm. Prostamegaly indents bladder base. MUSCULOSKELETAL STRUCTURES: No suspicious osseous lesion or acute process. Degenerative changes in the spine. Small fat-containing umbilical hernia. IMPRESSION: 1. Overall findings could be related to occult obstructing mass at the desmond hepatis such as cholangiocarcinoma or obstructing noncalcified choledocholithiasis. Acute cholecystitis considers less likely. Recommend further evaluation with MRI/MRCP without and with IV contrast. 2. Mild to moderate bilateral hydronephrosis without hydroureter. Findings may relate to UPJ stenosis or chronic urinary bladder outlet obstruction from prostamegaly. Consider correlation with PSA level. 3. Nonobstructing bilateral nephrolithiasis and 1.4 cm urinary bladder stone. KAY BOGGS MD Jan 16, 2022 10:32
--- NOTE | 2022-01-16 10:54 | HP ---
DATE OF SERVICE: 01/16/2022 ADMIT DATE: 01/15/2022 PATIENT LOCATION: 526. REASON FOR ADMISSION TO THE HOSPITAL: Elevated liver function tests, possible tumor at the desmond hepatis of the liver. HISTORY OF PRESENT ILLNESS: The patient is a 81-year-old male, the patient is well known to me, has history of hypertension and he had chronically elevated white count, last year had seen Dr. Diana, Hematology and was diagnosed with possible CLL. The patient has not seen him lately, but had seen him 2 weeks ago and he lost 15 pounds in 3 months and routine labs shows bilirubin was 8 and LFTs were elevated. He was in the process of getting a CT scan and ultrasound. In the meantime, the patient came to the ER yesterday for abdominal pain and his bilirubin was high and the patient was admitted to the hospital. His white count is 27,000. His white count has been more than 20 for almost 1 year and his bilirubin was 13 and in the office, it was 8, direct bilirubin 11, AST 114, ALT 362, alkaline phosphatase 382 and lipase 867. The patient had a CT scan of the abdomen and pelvis which shows obstructive mass at the desmond hepatis, mild to moderate hydronephrosis, nonobstructive kidney stone and 1.4 cm bladder stone and the patient was admitted to the hospital, General Surgery as well as GI was consulted. PAST MEDICAL HISTORY: As mentioned above, the patient has been losing weight. Had seen Oncology, was diagnosed with possible CLL last year, hypertension, chronic dizziness. PAST SURGICAL HISTORY: No major surgeries. ALLERGIES: No known allergies. MEDICATIONS AT HOME: The patient is on amlodipine 5 mg, cyclobenzaprine 10 mg, Lidoderm, losartan 50 mg, Zofran for nausea, and pantoprazole. REVIEW OF SYSTEMS: Denies any vomiting blood or any blood in the stool. Has weight loss, some abdominal pain on and off. PHYSICAL EXAMINATION: VITAL SIGNS: Temperature 98, pulse 88, respirations 16, blood pressure 157/80, 100% on room air. HEENT: Head is atraumatic and has some jaundice, discoloration of the eyeball. Oral cavity, no congestion. NECK: Supple. No mass palpable. CHEST: Symmetrical. CARDIOVASCULAR: S1, S2. LUNGS: Clear to auscultation. ABDOMEN: Soft. No mass palpable. EXTERNAL GENITALIA: No Valverde. RECTUM: Deferred. EXTREMITIES: No calf tenderness, no edema. NEUROLOGIC: Moving all extremities. No focal deficits noted. LABORATORY DATA: Laboratory data shows a white count of 27, hemoglobin 13, platelets 269. Sodium 136, potassium 3.8, chloride 100, bicarbonate 29, BUN 11, creatinine 0.9, glucose 103, bilirubin 14, total direct bilirubin 11.5, AST 144, ALT 326, alkaline phosphatase 382, albumin 3.2, lipase 867. Urine negative. Large bilirubin. Toxicology screen was negative. FINAL IMPRESSION: 1. Obstructive jaundice. 2. Mass in the desmond hepatis rule out underlying cancer. 3. Chronic elevated white count, possible, given diagnosis of CLL. 4. Hypertension. PLAN: At this time, was admit to the hospital. GI surgery was consulted. Would need MRCP to better visualize the mass and then would need a tissue biopsy. Discussed with the patient. LATOYA DR: Angela TID: [id number]
[2022-01-16 11:00] VITALS: BP 131/62
[2022-01-16 15:00] VITALS: BP 133/79
--- NOTE | 2022-01-16 15:51 | RAD ---
EXAMINATION: MRCP W/O CONTRAST. TECHNIQUE: Multiplanar multisequence MRI of the abdomen is performed with MRCP protocol HISTORY: 81 years Male obstructive jaundice. Abnormal CT scan COMPARISON: January 15, 2022 CT. FINDINGS: The intrahepatic the bile ducts demonstrate moderate to severe from a dilated dictation in a diffuse fashion. There is no discrete the mass identified near the hepatic hilum. This study however is not o ptimized for this evaluation as this is an MRCP protocol. There is also edema around the gallbladder. No definite gallstones seen. The there is unfortunately also motion artifact which decreases the sen sitivity of detection of this exam. The CBD is not dilated. The pancreatic duct is minimally prominen t in the pancreatic head with no definite filling defect or focal lesion. Maximum measurement is a 6 mm caliber. Three-dimensional MRCP was performed using maximum intensity projection reconstruction on the same wo rkstation showing diffuse dilatation of the bile ducts in the liver with motion artifact limiting carolynn luation. IMPRESSION: 1. Diffuse dilatation of the intrahepatic bile ducts concerning for central obstructive lesion around the level of the common hepatic duct. Further evaluation with multi phase CT scan or MRI of the abdo men and/or ERCP is suggested. 2. Gallbladder wall thickening and pericholecystic edema concerning for acalculus cholecystitis. Electronically signed by: Fab Vásquez MD (01/16/2022 3:48 PM) [id number]
[2022-01-16 19:00] VITALS: BP 148/76
[2022-01-16 23:00] VITALS: BP 141/65
[2022-01-17 03:00] VITALS: BP 120/51
[2022-01-17 07:00] VITALS: BP 129/61
[2022-01-17] MEDS: IV NORMAL SALINE 1000ML BAG 1,000 ML IV SCH (07:57)
[2022-01-17] MEDS: PANTOPRAZOLE IV PUSH 40 MG VIAL. IVP SCH (07:57)
--- NOTE | 2022-01-17 09:39 | PDOC ---
PROGRESS NOTES Date of Service: DATE: 01/17/22 TIME: 09:36 Subjective Subjective feels better Objective Objective Vital Signs Date Time Temp Pulse Resp B/P (MAP) Pulse Ox O2 Delivery O2 Flow Rate FiO2 01/17/22 08:00 Room Air 01/17/22 07:58 67 129/61 01/17/22 07:00 98.3 17 99 98.3 Intake and Output 01/17/22 07:00 Intake Total 4229 ml Output Total 1400 ml Balance 2829 ml Intake Oral 1460 ml IV Total 1000 ml Blood Product IV Normal Saline Flush 1769 ml Output Urine Total 1400 ml Physical Exam Abdomen: Soft, Other (ND, NTTP) Heart: Regular rate, Normal S1, Normal S2 Extremities: No clubbing, No cyanosis General: Alert, Oriented X3, Cooperative, Other (thin) HEENT: Other (jaundice) Lungs: Clear to auscultation, Normal air movement MUSCULOSKELETAL: No deformity, No swelling Neuro: Normal gait, Normal speech Psych/Mental Status: Mental status NL, Mood NL Skin: No rashes, No breakdown Diagnosis Problem List Problems Medical Problems: (1) Acute cholecystitis Status: Acute (2) Conjugated hyperbilirubinemia Status: Acute (3) Jaundice Status: Acute Assessment Assessment Problems Medical Problems: (1) Acute cholecystitis Status: Acute (2) Conjugated hyperbilirubinemia Status: Acute (3) Jaundice Status: Acute FINAL IMPRESSION: 1. Obstructive jaundice. 2. Mass in the desmond hepatis rule out underlying cancer. 3. Chronic elevated white count, possible, given diagnosis of CLL. 4. Hypertension. PLAN: needs ERCP and bare metal stent ,us guided biopsy. will try transfer to , if not out pt at liver clinic, spoke with GI and surgery. no acute infection. d/c perez. wbc 22 due to CLL bilirubin 12 At this time, was admit to the hospital. GI surgery was consulted. Would need MRCP to better visualize the mass and then would need a tissue biopsy. Discussed with the patient. Plan Plan of Care Problems Medical Problems: (1) Acute cholecystitis Status: Acute (2) Conjugated hyperbilirubinemia Status: Acute (3) Jaundice Status: Acute Comment Review of Relevant I have reviewed the following items abdias (where applicable) has been applied. Labs Laboratory Tests Test 01/16/22 16:41 Glucose (Fingerstick) 68 mg/dL (70-99) Medications Current Medications Amlodipine Besylate (Norvasc) 5 mg DAILY PO Last administered on 01/17/22at 07:58; Start 01/17/22 at 09:00 Vitals/I & O Vital Sign - Last 24 Hours 01/16/22 01/16/22 01/16/22 01/16/22 11:00 15:00 19:00 19:00 Temp 98.6 98.6 98.9 98.6 98.6 98.9 Pulse 74 72 85 Resp 18 19 20 B/P (MAP) 131/62 (85) 133/79 (97) 148/76 (100) Pulse Ox 97 98 97 O2 Delivery Room Air Room Air Room Air Room Air 01/16/22 01/17/22 01/17/22 01/17/22 23:00 03:00 07:00 07:58 Temp 98.4 98.0 98.3 98.4 98.0 98.3 Pulse 68 71 67 67 Resp 16 16 17 B/P (MAP) 141/65 (90) 120/51 (74) 129/61 (83) 129/61 Pulse Ox 95 98 99 O2 Delivery Room Air Room Air Room Air 01/17/22 08:00 O2 Delivery Room Air Intake and Output 01/16/22 01/16/22 01/17/22 15:00 23:00 07:00 Intake Total 180 ml 3849 ml 200 ml Output Total 300 ml 350 ml 750 ml Balance -120 ml 3499 ml -550 ml Justifications for Admission Other Justification REJI ELIZALDE MD Jan 17, 2022 09:39
--- NOTE | 2022-01-17 10:16 | PDOC ---
DATE OF SERVICE DATE: 01/17/22 TIME: 10:13 SUBJECTIVE ROS No complaints, ambulating in the room independently OBJECTIVE Vital Signs Vital Signs Date Time Temp Pulse Resp B/P (MAP) Pulse Ox O2 Delivery O2 Flow Rate FiO2 01/17/22 08:00 Room Air 01/17/22 07:58 67 129/61 01/17/22 07:00 98.3 17 99 98.3 I & 0 Intake and Output 01/17/22 07:00 Intake Total 4229 ml Output Total 1400 ml Balance 2829 ml Intake Oral 1460 ml IV Total 1000 ml Blood Product IV Normal Saline Flush 1769 ml Output Urine Total 1400 ml PHYSICAL EXAM Physical Exam General: NAD HEENT: Icterus + , OM moist Neck Supple Lungs: Clear to auscultation, Normal air movement Heart: Regular rate, Normal S1, Normal S2 Abdomen: Soft, ND, NTTP Extremities: No clubbing, No cyanosis Skin: No rashes, No breakdown, Neuro: Grossly normal, No focal deficit Psych/Mental Status: Cooperative Valverde placed at admission , No CVA or SP tenderness DIAGNOSIS/ASSESSMENT Assessment & Plan Hydronephrosis - Mild to moderate bilateral hydronephrosis without hydroureter. Findings may relate to UPJ stenosis or chronic urinary bladder outlet obstruction from prostamegaly. Urology Consulted - defer to Primary Voiding trial prior to dc of Valverde dced CKD stage 2- Creatinine Normal Baseline 0.8-1.2 . Supportive care, Maintain fluid balance. Avoid Nephrotoxins . No labs this morning Renal/ bladder Calculus - Nonobstructing bilateral nephrolithiasis and 1.4 cm urinary bladder stone BPH- Prostamegaly indents bladder base. Per urology Jaundice/ Hyperbilirubinemia/Abnormal LFT's - CT abdomen- findings cw Obstructive etiology such as cholangiocarcinoma or obstructing noncalcified choledocholithiasis. Needs ERCP and bare metal stent ,us guided biopsy. possible transfer to / or out pt at liver clinic for biopsy Chronic elevated white count, possible, given diagnosis of CLL. Awaiting either DC to or Dc home COMMENT/RELEVANT DATA Meds Current Medications Medications (Trade) Dose Ordered Sig/Kam Start Time Stop Time Status Last Admin Dose Admin Amlodipine Besylate (Norvasc) 5 mg DAILY 01/17/22 09:00 01/17/22 07:58 5 MG Fentanyl Citrate (Fentanyl 2ml Vial) 25 mcg PRN Q4HRS PRN 01/15/22 18:30 Info (CONTRAST GIVEN -- Rx MONITORING) 1 each PRN DAILY PRN 01/15/22 11:15 01/17/22 11:14 Iohexol (Omnipaque 300 Mg/ml) 75 ml 1X ONCE 01/15/22 11:00 01/15/22 11:02 DC 01/15/22 11:17 75 ML Pantoprazole Sodium (PROTONIX VIAL for IV PUSH) 40 mg DAILY 01/16/22 09:00 01/17/22 07:57 40 MG Piperacillin Sod/ Tazobactam Sod 4.5 gm/Dextrose 100 ml @ 200 mls/hr 1X ONCE 01/15/22 12:15 01/15/22 12:44 DC 01/15/22 12:16 200 MLS/HR Sodium Chloride 1,000 ml @ 80 mls/hr [id number] 01/15/22 18:30 01/17/22 07:57 80 MLS/HR Lab Laboratory Tests Test 01/16/22 16:41 Glucose (Fingerstick) 68 mg/dL (70-99) Results All relevant outside records, renal labs, imaging studies, telemetry/EKG's were reviewed. Justicifation of Admission Dx: Justifications for Admission: Justification of Admission Dx: N/A KAY BOGGS MD Jan 17, 2022 10:16
--- NOTE | 2022-01-17 10:18 | PDOC ---
LOWELL MCQUEEN SQL ARCHITECT 01/17/22 1017: SURGICAL PROGRESS NOTE DATE: 01/17/22 TIME: 10:15 Subjective tolerating clears feels ok Vital Signs Vital Signs Date Time Temp Pulse Resp B/P (MAP) Pulse Ox O2 Delivery O2 Flow Rate FiO2 01/17/22 08:00 Room Air 01/17/22 07:58 67 129/61 01/17/22 07:00 98.3 17 99 98.3 I&O Intake and Output 01/17/22 07:00 Intake Total 4229 ml Output Total 1400 ml Balance 2829 ml Intake Oral 1460 ml IV Total 1000 ml Blood Product IV Normal Saline Flush 1769 ml Output Urine Total 1400 ml General: Cooperative HEENT: Other (jaundice) Abdomen: Soft Labs Laboratory Tests Test 01/15/22 13:36 01/16/22 04:35 01/16/22 07:56 01/16/22 09:03 Urine Collection Type Unknown Urine Color Julia Urine Clarity Clear Urine pH 7.0 (<5.0-8.0) Urine Specific [place] 1.015 (1.000-1.030) Urine Protein Negative mg/dL (NEG-TRACE) Urine Glucose (UA) Negative mg/dL (NEG) Urine Ketones (Stick) Trace mg/dL (NEG) Urine Blood Negative (NEG) Urine Nitrite Negative (NEG) Urine Bilirubin Large (NEG) Urine Urobilinogen Dipstick 0.2 mg/dL (0.2 mg/dL) Urine Leukocyte Esterase Negative (NEG) Urine RBC Occ /HPF (0-2) Urine WBC Occ /HPF (0-4) Urine Squamous Epithelial Cells Occ /LPF Urine Bacteria 0 /HPF (0-FEW) Urine Hyaline Casts Occasional /HPF Urine Mucus Mod /LPF Urine Opiates Screen Neg (NEG) Urine Methadone Screen Neg (NEG) Urine Barbiturates Neg (NEG) Urine Phencyclidine Screen Neg (NEG) Urine Amphetamine/Methamphetamine Neg (NEG) Urine Benzodiazepines Screen Neg (NEG) Urine Cocaine Screen Neg (NEG) Urine Cannabinoids Screen Neg (NEG) Urine Ethyl Alcohol Neg (NEG) White Blood Count 22.9 x10^3/uL (4.0-11.0) Red Blood Count 3.94 x10^6/uL (4.30-5.70) Hemoglobin 10.8 g/dL (13.0-17.5) Hematocrit 33.0 % (39.0-53.0) Mean Corpuscular Volume 84 fL (79-100) Mean Corpuscular Hemoglobin 28 pg (25-35) Mean Corpuscular Hemoglobin Concent 33 g/dL (31-37) Red Cell Distribution Width 16.8 % (11.5-14.5) Platelet Count 219 x10^3/uL (140-400) Neutrophils (%) (Auto) 12 % (31-73) Lymphocytes (%) (Auto) 76 % (24-48) Monocytes (%) (Auto) 12 % (0-9) Eosinophils (%) (Auto) 0 % (0-3) Basophils (%) (Auto) 0 % (0-3) Neutrophils # (Auto) 2.7 x10^3/uL (1.8-7.7) Lymphocytes # (Auto) 17.3 x10^3/uL (1.0-4.8) Monocytes # (Auto) 2.8 x10^3/uL (0.0-1.1) Eosinophils # (Auto) 0.1 x10^3/uL (0.0-0.7) Basophils # (Auto) 0.1 x10^3/uL (0.0-0.2) Sodium Level 141 mmol/L (136-145) Potassium Level 4.5 mmol/L (3.5-5.1) Chloride Level 108 mmol/L (98-107) Carbon Dioxide Level 26 mmol/L (21-32) Anion Gap 7 (6-14) Blood Urea Nitrogen 9 mg/dL (8-26) Creatinine 1.0 mg/dL (0.7-1.3) Estimated GFR (Cockcroft-Gault) 87.2 BUN/Creatinine Ratio 9 (6-20) Glucose Level 70 mg/dL (70-99) Calcium Level 8.4 mg/dL (8.5-10.1) Total Bilirubin 11.4 mg/dL (0.2-1.0) Aspartate Amino Transf (AST/SGOT) 103 U/L (15-37) Alanine Aminotransferase (ALT/SGPT) 223 U/L (16-63) Alkaline Phosphatase 285 U/L (46-116) Total Protein 5.7 g/dL (6.4-8.2) Albumin 2.4 g/dL (3.4-5.0) Albumin/Globulin Ratio 0.7 (1.0-1.7) Lipase 867 U/L (73-393) Glucose (Fingerstick) 63 mg/dL (70-99) 100 mg/dL (70-99) Test 01/16/22 16:41 Glucose (Fingerstick) 68 mg/dL (70-99) Laboratory Tests Test 01/16/22 16:41 Glucose (Fingerstick) 68 mg/dL (70-99) Problem List Problems Medical Problems: (1) Acute cholecystitis Status: Acute (2) Conjugated hyperbilirubinemia Status: Acute (3) Jaundice Status: Acute Assessment/Plan d/w PCP and GI--plans for ERPC/stent, EUS --likely [facility] Justicifation of Admission Dx: Justifications for Admission: Justification of Admission Dx: N/A LAYO HERNANDEZ MD 01/17/22 1234: SURGICAL PROGRESS NOTE Assessment/Plan No acute changes. Plan for EUS at [employer] agree with the plan. LOWELL MCQUEEN APRN Jan 17, 2022 10:17 LAYO HERNANDEZ MD Jan 17, 2022 12:34
--- NOTE | 2022-01-17 10:31 | PDOC ---
Date of Service: DATE: 01/17/22 TIME: 10:24 Subjective: Subjective: I saw him earlier this morning - No abdominal discomfort. Tolerating clears, would like more. Objective: Vital Signs: Vital Signs Date Time Temp Pulse Resp B/P (MAP) Pulse Ox O2 Delivery O2 Flow Rate FiO2 01/17/22 08:00 Room Air 01/17/22 07:58 67 129/61 01/17/22 07:00 98.3 17 99 98.3 Labs: Laboratory Tests Test 01/16/22 16:41 Glucose (Fingerstick) 68 mg/dL (70-99) Imaging: MRCP 01/16/22 FINDINGS: The intrahepatic the bile ducts demonstrate moderate to severe from a dilated dictation in a diffuse fashion. There is no discrete the mass identified near the hepatic hilum. This study however is not optimized for this evaluation as this is an MRCP protocol. There is also edema around the gallbladder. No definite gallstones seen. The there is unfortunately also motion artifact which decreases the sensitivity of detection of this exam. The CBD is not dilated. The pancreatic duct is minimally prominent in the pancreatic head with no definite filling defect or focal lesion. Maximum measurement is a 6 mm caliber. Three-dimensional MRCP was performed using maximum intensity projection reconstruction on the same workstation showing diffuse dilatation of the bile ducts in the liver with motion artifact limiting evaluation. IMPRESSION: 1. Diffuse dilatation of the intrahepatic bile ducts concerning for central obstructive lesion around the level of the common hepatic duct. Further evaluation with multi phase CT scan or MRI of the abdomen and/or ERCP is suggested. 2. Gallbladder wall thickening and pericholecystic edema concerning for a calculus cholecystitis. PE: GEN: NAD, thin LUNGS: CTAB HEART: RRR ABD: S/ND/NT SKIN: +jaundice NEURO/PSYCH: A & O 3, calm and cooperative A/P: Obstructive jaundice, concern for malignancy/cholangiocarcinoma H/o CLL -- D/w Dr. Morrell, Dr. Moctezuma, and Rosie/surgery - recommend ongoing workup w/ GI at tertiary center. Seems like trying for transfer to [facility] will fax records to GI dept - recommendation from transfer center may be to follow-up as outpt - d/w primary, nurse, surgery. Justicifation of Admission Dx: Justifications for Admission: Justification of Admission Dx: N/A MARYJO JEAN BAPTISTE Jan 17, 2022 10:31
[2022-01-17 11:00] VITALS: BP 137/77
--- NOTE | 2022-01-17 11:04 | PDOC2 ---
JAYE SINGH 01/17/22 1104: UROLOGY CONSULT DOS: DATE: 01/17/22 TIME: 10:57 Reason for Consult: Bladder stone, bilateral hydronephrosis 81M admitted to the hospital for elevated liver function test, jaundice and leukocytosis. Urology was consulted as CT scan was completed inpatient. 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 CT imaging also showed bilateral hydronephrosis, bilateral renal stones up to 1 cm in size and a 1.4 cm bladder stone. Perez catheter placed by hospitalist overnight for a bladder outlet obstruction. Patient reports at baseline he has weak urine stream, urinary frequency and hesitancy. He has never had any intervention on his kidney prostate or bladder. Denies ever requiring Perez catheter in the past. He is not having any dysuria or gross hematuria. He is unsure if he has ever had his PSA evaluated. He denies any current flank pain or abdominal pain. ROS Constitutional: Denies fevers, chills, weakness Cardiovascular: Denies chest pain, palpitations Respiratory: Denies shortness of breath, wheezing, dyspnea on exertion GI: Denies abdominal pain, nausea, vomiting : Denies dysuria, +frequency, urgency, -hematuria, urinary retention, flank pain Skin: Denies rash, bruising, reports jaundice Musculoskeletal: Denies extremity pain, extremity edema Psychiatric: Denies stress, anxiety Current Medications Current Medications Sodium Chloride 1,000 ml @ 1,000 mls/hr Q1H IV Last administered on 01/15/22at 08:57; Start 01/15/22 at 08:45; Stop 01/15/22 at 09:44; Status DC Iohexol (Omnipaque 300 Mg/ml) 75 ml 1X ONCE IV Last administered on 01/15/22at 11:17; Start 01/15/22 at 11:00; Stop 01/15/22 at 11:02; Status DC Info (CONTRAST GIVEN -- Rx MONITORING) 1 each PRN DAILY PRN MC SEE COMMENTS; Start 01/15/22 at 11:15; Stop 01/17/22 at 11:14 Piperacillin Sod/ Tazobactam Sod 4.5 gm/Dextrose 100 ml @ 200 mls/hr 1X ONCE IV Last administered on 01/15/22at 12:16; Start 01/15/22 at 12:15; Stop 01/15/22 at 12:44; Status DC Pantoprazole Sodium (PROTONIX VIAL for IV PUSH) 40 mg DAILY IVP Last administered on 01/17/22at 07:57; Start 01/16/22 at 09:00 Fentanyl Citrate (Fentanyl 2ml Vial) 25 mcg PRN Q4HRS PRN IVP PAIN; Start 01/15/22 at 18:30 Sodium Chloride 1,000 ml @ 80 mls/hr [id number] IV Last administered on 01/17/22at 07:57; Start 01/15/22 at 18:30 Amlodipine Besylate (Norvasc) 5 mg DAILY PO Last administered on 01/17/22at 07:58; Start 01/17/22 at 09:00 Active Scripts Active Amlodipine Besylate 5 Mg Tablet 5 Mg PO DAILY Cozaar (Losartan Potassium) 50 Mg Tablet 50 Mg PO DAILY Allergies: Coded Allergies: No Known Drug Allergies (Unverified , 08/21/15) Physical Examination GENERAL: awake, alert, oriented SKIN: warm, dry, jaundice, scleral icterus RESPIRATORY: Aerating well, symmetrical expansion GI: Soft, nontender, no guarding, no rebound : Normal anatomy, no lesions, no CVA tenderness, Perez in place draining clear yellow urine MUSCULOSKELETAL: Moves all extremities, no edema NEURO: No gross abnormalities PSYCHIATRIC: Normal mood, normal affect, pleasant DOES THIS PATIENT HAVE URINARY: Yes VITALS Vital Signs Date Time Temp Pulse Resp B/P (MAP) Pulse Ox O2 Delivery O2 Flow Rate FiO2 01/17/22 08:00 Room Air 01/17/22 07:58 67 129/61 01/17/22 07:00 98.3 17 99 98.3 Labs Laboratory Tests Test 01/15/22 13:36 01/16/22 04:35 01/16/22 07:56 01/16/22 09:03 Urine Collection Type Unknown Urine Color Julia Urine Clarity Clear Urine pH 7.0 (<5.0-8.0) Urine Specific [place] 1.015 (1.000-1.030) Urine Protein Negative mg/dL (NEG-TRACE) Urine Glucose (UA) Negative mg/dL (NEG) Urine Ketones (Stick) Trace mg/dL (NEG) Urine Blood Negative (NEG) Urine Nitrite Negative (NEG) Urine Bilirubin Large (NEG) Urine Urobilinogen Dipstick 0.2 mg/dL (0.2 mg/dL) Urine Leukocyte Esterase Negative (NEG) Urine RBC Occ /HPF (0-2) Urine WBC Occ /HPF (0-4) Urine Squamous Epithelial Cells Occ /LPF Urine Bacteria 0 /HPF (0-FEW) Urine Hyaline Casts Occasional /HPF Urine Mucus Mod /LPF Urine Opiates Screen Neg (NEG) Urine Methadone Screen Neg (NEG) Urine Barbiturates Neg (NEG) Urine Phencyclidine Screen Neg (NEG) Urine Amphetamine/Methamphetamine Neg (NEG) Urine Benzodiazepines Screen Neg (NEG) Urine Cocaine Screen Neg (NEG) Urine Cannabinoids Screen Neg (NEG) Urine Ethyl Alcohol Neg (NEG) White Blood Count 22.9 x10^3/uL (4.0-11.0) Red Blood Count 3.94 x10^6/uL (4.30-5.70) Hemoglobin 10.8 g/dL (13.0-17.5) Hematocrit 33.0 % (39.0-53.0) Mean Corpuscular Volume 84 fL (79-100) Mean Corpuscular Hemoglobin 28 pg (25-35) Mean Corpuscular Hemoglobin Concent 33 g/dL (31-37) Red Cell Distribution Width 16.8 % (11.5-14.5) Platelet Count 219 x10^3/uL (140-400) Neutrophils (%) (Auto) 12 % (31-73) Lymphocytes (%) (Auto) 76 % (24-48) Monocytes (%) (Auto) 12 % (0-9) Eosinophils (%) (Auto) 0 % (0-3) Basophils (%) (Auto) 0 % (0-3) Neutrophils # (Auto) 2.7 x10^3/uL (1.8-7.7) Lymphocytes # (Auto) 17.3 x10^3/uL (1.0-4.8) Monocytes # (Auto) 2.8 x10^3/uL (0.0-1.1) Eosinophils # (Auto) 0.1 x10^3/uL (0.0-0.7) Basophils # (Auto) 0.1 x10^3/uL (0.0-0.2) Sodium Level 141 mmol/L (136-145) Potassium Level 4.5 mmol/L (3.5-5.1) Chloride Level 108 mmol/L (98-107) Carbon Dioxide Level 26 mmol/L (21-32) Anion Gap 7 (6-14) Blood Urea Nitrogen 9 mg/dL (8-26) Creatinine 1.0 mg/dL (0.7-1.3) Estimated GFR (Cockcroft-Gault) 87.2 BUN/Creatinine Ratio 9 (6-20) Glucose Level 70 mg/dL (70-99) Calcium Level 8.4 mg/dL (8.5-10.1) Total Bilirubin 11.4 mg/dL (0.2-1.0) Aspartate Amino Transf (AST/SGOT) 103 U/L (15-37) Alanine Aminotransferase (ALT/SGPT) 223 U/L (16-63) Alkaline Phosphatase 285 U/L (46-116) Total Protein 5.7 g/dL (6.4-8.2) Albumin 2.4 g/dL (3.4-5.0) Albumin/Globulin Ratio 0.7 (1.0-1.7) Lipase 867 U/L (73-393) Glucose (Fingerstick) 63 mg/dL (70-99) 100 mg/dL (70-99) Test 01/16/22 16:41 Glucose (Fingerstick) 68 mg/dL (70-99) Laboratory Tests Test 01/16/22 16:41 Glucose (Fingerstick) 68 mg/dL (70-99) Assessment/Plan --Bilateral hydronephrosis, renal stones and bladder stone Perez catheter placed last night. Agree with placement as he has a bladder outlet obstruction with baseline LUTS. Bladder stone likely result of improper emptying. Cannot find documentation on bladder scan prior to Perez placement. UA negative for any infection. Creatinine stable at 1.0. Advised patient to maintain catheter 1 to 2 weeks for proper emptying. We will plan for an outpatient cystoscopy in the office. Patient likely will require cystolitholopaxy for large bladder stone as well as possible TURP. This can be discussed at the office visit. He is planning to follow-up with [facility] in regards to the desmond hepatis mass. I did discuss with him that he can follow-up with [facility] or urology but will need evaluation in the next 1 to 2 weeks. Pt to start Flomax 0.4mg daily Patient to make appointment with [facility] at [phone] or urology, per pt preference. D/w Dr. Delacruz, agreeable. TANJA DELACRUZ MD 01/17/22 1720: UROLOGY CONSULT Assessment/Plan Agree with assessment and plan. Start tamsulosin 0.4 mg daily. Keep in perez x 1 week, then f/u in urology clinic. JAYE SINGH Jan 17, 2022 11:04 TANJA DELACRUZ MD Jan 17, 2022 17:20
--- NOTE | 2022-01-17 11:37 | NUR ---
[facility] following. Discussed with RN, Dr. Moctezuma requesting transfer. [facility] initiated transfer and faxed requested clinicals. If [facility] declines pt will be discharged home to follow up outpatient. [facility] will continue to follow. Addendum: 01/17/22 at 1203 by VINCENZO MATAMOROS Pt accepted at [facility] for inpatient transfer. Awaiting bed assignment. CLEMENTE and Dr. Moctezuma aware. Addendum: 01/17/22 at 1334 by VINCENZO MATAMOROS Pt accepted to bed [id number] at . Transportation arranged with [facility] for 1430. RN and JOANNE notified. RN completing transfer consent. Packet on chart.
[2022-01-17] MEDS ORDERED: TAMSULOSIN 0.4 MG CAP.ER.24H. PO SCH (12:00)
--- NOTE | 2022-01-17 14:43 | NUR ---
pt transferred to [facility] for ERCP with stent placement. pt left facility via EMS transport at 1430. pt stable and alert upon transfer. pt had perez cath in place for transfer. tele box removed.
--- NOTE | 2022-01-18 09:28 | PDOC ---
Provider Note Date of Service: DATE: 01/18/22 TIME: 09:27 Provider Note Discharge summary dictated.#[id number]. Justifications for Admission Other Justification REJI ELIZALDE MD Jan 18, 2022 09:28
--- NOTE | 2022-01-18 09:49 | DS ---
DATE OF DISCHARGE: 01/17/2022 REASON FOR ADMISSION TO THE HOSPITAL: Obstructive jaundice. CONSULTATIONS: General Surgery, GI, renal, Urology. PROCEDURES DONE: 1. CT of the abdomen and pelvis. 2. Ultrasound of the abdomen. 3. Magnetic resonance cholangiopancreatography. HOSPITAL COURSE: The patient is a 81-year-old male who has been losing weight, for the last 3 months 15 pounds and with abdominal pain, was found to have obstructive jaundice. Bilirubin was 14. Direct bilirubin was 11, AST 144, ALT 326, alk phos 382 and ammonia was normal. The patient had a CT scan, which shows a tumor around the desmond hepatis causing obstructive jaundice. Ultrasound of the abdomen was similar findings. Also had some mild hydronephrosis. The patient had an MRCP, which shows diffuse dilatation of the intrahepatic bile ducts for central obstructive lesion around the common hepatic duct and it was decided to transfer the patient at for possible ultrasound guided liver biopsy and stent placement in the common bile duct. The patient was transferred to and the patient also had mild hydronephrosis, seen by Urology as well as a renal, had some kidney stone, nonobstructive and 1.4 cm bladder stone. On the whole, the patient's condition remained stable, was discharged to for further intervention. JULES DR: Angela TID: [id number]
== END 2022-01-17 14:30 | disposition short-term general hospital (02) | DRG 445 ==
LOC: ER 08:23 → ED HOLD 11:51 → 5 NORTH 16:08
PROVIDERS: ADMIT Internal Medicine; ATTEND Internal Medicine
DX: K80.01 Calculus of gallbladder with acute cholecystitis with obstruction (principal); N13.2 Hydronephrosis with renal and ureteral calculous obstruction; E78.5 Hyperlipidemia, unspecified; I10 Essential (primary) hypertension; N21.0 Calculus in bladder; N32.0 Bladder-neck obstruction; R79.89 Other specified abnormal findings of blood chemistry; D72.829 Elevated white blood cell count, unspecified; D64.9 Anemia, unspecified; Z20.822 Contact with and (suspected) exposure to COVID-19; Z79.82 Long term (current) use of aspirin; Z82.49 Family history of ischemic heart disease and other diseases of the circulatory system
CPT/HCPCS: 36415; 71045; 74177; 74181; 76705; 80048; 80053; 80076; 80307; 81001; 82140; 82550; 82962; 83690; 84484; 85007; 85025; 85610; 85730; 87426; 93005; 96361; 96365; A4314; C9113; J2543; J7030; J7060; Q9967; 99285-25; G0378